=== PATIENT | female | born 1935 | race Caucasian/White ===

== ENCOUNTER → 2016-10-08 | Outpatient (CLI) | payer OTHER ==
[~2016-10-08] MED LIST: ACCUNEB0.63 MG/3 INH; ACETAMINOPHEN325 M1 PO; ALBUTEROL2.5 MG/31 INH; AMANTADINE 100100 MG PO; AREDS; AVELOX 400 MG400 MG PO; BACLOFEN20 MG PO; CALCIUM PO; CALCIUM STOOL240 MG PO; CARDIZEM CD180 MG PO; CITRACAL + BON1 EACH PO; COLACE100 MG PO; DEXEDRINE5 MG PO; DOCUSATE CALCIUM; FERRO-TIME325 MG PO; FISH OIL 1,0001 EAC8 PO; FLONASE16 GM NASAL; FOSAMAX 35 MG35 MG PO; GLYCOLAX POWDER17 G1 PO; HEALTHYLAX17 GM PO; I-CAPS AREDS S1 EACH PO; IMDUR 30 MG TAB30 M1 PO; LEVAQUIN 500 M500 M5 PO; LEVAQUIN 500 M500 M8 PO; LEVOTHYROXIN0.025 MG PO; LEVOTHYROXINE0.05 MG PO; METOCLOPRAMIDE 55 M1 PO; MUCINEX600 MG PO; MULTIVITAMINS PO; MULTIVITAMINS1 EAC7 PO; NORCO 5-325 TA1 EACH PO; OMEPRAZOLE 20 M20 M1 PO; OMEPRAZOLE 20 M20 MG PO; PAIN & FEVER325 MG PO; PREDNISONE 5 MG5 MG PO; RITALIN10 MG PO; STOOL SOFTENER240 MG PO; TOPROL XL50 MG PO; TRAMADOL 50 MG50 MG PO; ULTRAM 50MG TAB50 MG PO; VITAMINC500 PO
== END ==
LOC: RAD 08:35
DX: R06.00 Dyspnea, unspecified (principal)

== ENCOUNTER → 2017-02-01 | Outpatient (CLI) | payer OTHER | LOC: RAD 10:25 | DX: Z12.31 Encounter for screening mammogram for malignant neoplasm of breast (principal) ==

== ENCOUNTER → 2017-11-01 | Outpatient (CLI) | payer OTHER | LOC: RAD 08:33 | DX: J47.9 Bronchiectasis, uncomplicated (principal); R06.02 Shortness of breath ==

== ENCOUNTER 2017-11-23 23:23 | Inpatient (IN) | payer OTHER ==
[~2017-11-23] VITALS: Ht 162.6 cm; Wt 55.8 kg
--- NOTE | ~2017-11-23 | H ---
[facility] [place] [address] HISTORY AND PHYSICAL Name: LUPE LEZAMA Room #: 431-P ADM IN M.R.#: [id number] Admission: 11/24/17 Attend Phys: Andrew Baker MD Discharge: Date of : 36 Report #: [id number] THIS REPORT FOR: //name// CC: Hayden Baker DATE OF SERVICE: 11/24/2017 CHIEF COMPLAINT: Weakness. HISTORY OF PRESENT ILLNESS: The patient is an 82-year-old female who came in the Emergency Room with general weakness for several days. She was just feeling weak in the legs beyond her baseline. Apparently slumped to the floor when trying to transfer from her recliner to her wheelchair. She does have a history of multiple sclerosis and is generally wheelchair bound and is only able to transfer with assistance. She also has some nerve damage, injury to the right arm with significant weakness. She reports it was related to radiation treatment she took for breast cancer many years ago. She had fever in the ER and urinalysis was suggestive of infection. She has a ventral urostomy bag for urinary output. PAST MEDICAL HISTORY: MS, urostomy, history of pneumonia, chronic bronchitis and COPD, breast cancer with right lumpectomy and radiation treatment, right arm hemiplegia. 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 PAST SURGICAL HISTORY: As above. FAMILY HISTORY: Noncontributory. SOCIAL HISTORY: She is and lives with her . No chronic alcohol or tobacco use. ALLERGIES: MULTIPLE, SEE THE LIST. MEDICATIONS: Diltiazem, amantadine, Reglan, Flonase, Prilosec, Fosamax, Imdur, Toprol, Synthroid, DuoNeb, Colace, multivitamin, fish oil, vitamin C, Actonel, baclofen. REVIEW OF SYSTEMS: She complains of general weakness. She is awake and alert. She denies headache, chest pain, shortness of breath, nausea, vomiting, dysuria, syncope. OBJECTIVE: VITAL SIGNS: Temperature 36.8, pulse 80, respirations 17, blood pressure 129/65, O2 sat 97% on 2 liters. [facility] [address] [place] [address] HISTORY AND PHYSICAL Name: LUPE LEZAMA Room #: [address] [place] [address] IN .R.#: [id number] Admission: 11/24/17 Attend Phys: Andrew Baker MD Discharge: Date of : 36 Report #: [id number] GENERAL: She is awake and alert, in no distress. LUNGS: Clear. HEART: Regular. ABDOMEN: Soft, normoactive bowel sounds with urostomy. EXTREMITIES: No edema. NEUROLOGIC: There is near flaccid paralysis of the right arm. She has about 1/5 movement. She has rigid about 2/5 movement in the legs. LABORATORY DATA: Pertinent findings are urinalysis with blood, nitrite, leukocyte esterase, red cells, many bacteria, and culture is pending. Initial white count was 14. CPK was negative. Chemistry unremarkable. ASSESSMENT: 1. Acute urinary tract infection. 2. Possible multiple sclerosis exacerbation. 3. Hypertension. 4. Chronic urostomy in place. 5. Chronic obstructive pulmonary disease. PLAN: She will continue antibiotics with Levaquin pending the culture. I will ask Dr. Cochran to see her in regards to a possible MS exacerbation with consideration of steroids. Therapies have been initiated and I will have DVT prophylaxis added with Lovenox. <ELECTRONICALLY SIGNED> By: Andrew Baker MD 11/25/17 1043 1402 1417 Andrew Baker MD /nt
--- NOTE | ~2017-11-23 | D ---
[facility] [place] [address] DISCHARGE SUMMARY Name: LUPE LEZAMA Room #: 220-P [facility] IN M.R.#: [id number] Admission: 11/24/17 Attend Phys: Andrew Baker MD Discharge: 11/29/17 Date of : 36 Report #: [id number] THIS REPORT FOR: //name// CC: Hayden Baker FINAL DIAGNOSES: 1. Urinary tract infection. 2. Multiple sclerosis. HOSPITAL COURSE: The patient was admitted with fever and weakness and was diagnosed with UTI. Culture grew E. coli. Blood cultures were negative. Levaquin was continued due to her multiple allergies and sensitivity list despite evidence of intermediate susceptibility. She had no further symptoms during her stay. Dr. Cochran saw her for her MS, but did not feel an exacerbation and at this point, warranted steroids in the face of acute infection. Due to global weakness and immobility to begin with along with chronic right arm weakness, recommendation was prison to try to build some strength for transfers and order to return home. DISPOSITION: She will be transferred to [facility] under the care of inhouse physician. She will have a few more days of oral Levaquin. Other home medications to continue, PT and OT. Diet as tolerated. Follow up with Dr. Webb in 6 weeks. <ELECTRONICALLY SIGNED> By: Andrew Baker MD 11/30/17 0901 1249 1316 Andrew Baker MD /raúl
--- NOTE | ~2017-11-23 | HC ---
[facility] [place] [address] CONSULTATION Name: LUPE LEZAMA Room #: 431-P ADM IN M.R.#: [id number] Admission: 11/24/17 Attend Phys: Andrew Baker MD Discharge: Date of : 36 Report #: [id number] THIS REPORT FOR: //name// CC: Hayden Baker DATE OF SERVICE: 11/24/2017 HISTORY OF PRESENT ILLNESS: This is an 82-year-old female patient who was evaluated by me for multiple sclerosis. She follows up with Dr. Braun at [facility]. She indicates that her symptoms started about 20-30 years ago. She had bladder disturbances and problem with her legs. She initially had some MRIs, but they were not certain about the diagnosis. They did a spinal tap, but subsequently they thought she had a brain tumor. 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 She said initially she was diagnosed with relapsing and remitting MS, but subsequently with secondary progressive MS. She got weak about 2 months ago. She was given an oral steroid and she became better. She had an MRI done of the brain and spine about 2 months ago and that indicated that the patient had no active lesions. I do not have any of those records. REVIEW OF SYSTEMS: Positive for bladder disturbances. She is febrile here. She is also hyponatremic. Urine demonstrate UTI. White count is elevated. It looks like she is presently having an active infection. Her weakness in the lower extremity has become worse and that is one of the reason she came. She has a history of chronic bronchitis, history of pneumonia, urostomy and she had a radiation treatment also because of the breast cancer. She also has a history of kidney stone. There was a relevant 14-point review of system. PAST MEDICAL HISTORY: Positive for MS. FAMILY HISTORY: Negative for any neurodegenerative disorder. SOCIAL HISTORY: She lives with her who helps a lot in day-to-day activities. She does not drink any alcohol or smoke. PHYSICAL EXAMINATION: Indicate she is alert. She is responsive. She can follow simple commands. She believes her memory is at her baseline. Cranial nerve examination 2-12 was mostly noncontributory, but she is weak in all 4 extremities. She is able to move them, but she is still weak there. She believes position sense are there. There is no meningeal sign in this patient and her mentation has not deteriorated. She does not appear to be short of breath and there is no rhonchi. Blood pressure is 149/64, respiration is 16, pulse is 90, temperature is 98.8. [facility] [address] [place] [address] CONSULTATION Name: LUPE LEZAMA Room #: 431-P ADM IN M.R.#: [id number] Admission: 11/24/17 Attend Phys: Andrew Baker MD Discharge: Date of : 36 Report #: [id number] LABORATORY DATA: As described above. I do not have any imaging study in this patient. IMPRESSION: 1. Urinary tract infection. 2. Exacerbation of her symptoms most likely secondary to urinary tract infection. Infection can lead to relapse of multiple sclerosis also. RECOMMENDATIONS: I had a long talk with this patient and discussed her options with her. I discussed with her that it would not be desirable to start her on steroids when she is having active urinary tract infection. This is because it can make the urinary tract infection worse because of decreased immunity secondary to steroids and secondly it is not possible to tell if her exacerbation of the symptoms is because of infection or another relapse of MS. I told her that I will try to get her MRI from 2 months ago. If she continued to be symptomatic, I will suggest repeating the MRI to see if there are any active lesions before giving her steroids. Otherwise, I will suggest presently treating her urinary tract infection and hyponatremia and maybe get a rehab consult since she came from home and let her recuperate there and see if she gets better. More than 50 minutes of time was spent taking care of this patient today and majority of that time was spent counseling this patient on above matters as well as coordinating her care. By: 57 32 Henry Cochran MD /raúl
--- NOTE | ~2017-11-23 | EKG ---
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1935 Requested By: Devan Flores Order Number: [id number] MD: Aldo River Measurements Intervals [place] Rate: 94 P: 75 MO: 161 QRS: 34 QRSD: 92 T: 57 QT: 332 QTc: 416 Interpretive Statements Sinus rhythm Normal tracing Compared to ECG 05/24/2013 12:05:40 Sinus tachycardia no longer present Atrial premature complex(es) no longer present Electronically Signed On 11-24-2017 7:37:44 CDT by Aldo River [email or web address] <ELECTRONICALLY SIGNED> By: Aldo River MD, [facility] 11/24/17 0737 2348 47 Aldo River MD, [facility] /EPI
[2017-11-23 23:49] VITALS: BP 142/79
[2017-11-23 23:50] LABS: MCH 30.4 pg (26.0-34.0); MCHC 33.5 g/dL (28.0-37.0); PLATELET COUNT 174 thou/uL (150-400); RBC 3.95 mil/uL (4.20-5.00); RDW 13.4 % (10.5-14.5); WBC 14.4 thou/uL (4.0-11.0)
[2017-11-23 23:57] LABS: URINE BILIRUBIN NEGATIVE (Negative); URINE BLOOD 1+ (Negative); URINE COLOR YELLOW; URINE GLUCOSE-RANDOM* NEGATIVE (Negative); URINE KETONES NEGATIVE (Negative); URINE PROTEIN (DIPSTICK) 1+ (Negative); URINE UROBILINOGEN 0.2 E.U./dl (0.2-1.0)
[2017-11-23 23:58] LABS: URINE LEUKOCYTES-REFLEX 3+ (Negative); URINE NITRITE-REFLEX POSITIVE (Negative)
[2017-11-23 23:59] LABS: URINE CLARITY CLOUDY
[2017-11-24] LABS: ANION GAP 10 mmol/L (7-16); BUN 26 mg/dL (7-18); CALCIUM 9.9 mg/dL (8.5-10.1); CHLORIDE 93 mmol/L (98-107); CO2 28 mmol/L (21-32); CREATININE 1.2 mg/dL (0.6-1.0); GLUCOSE 143 mg/dL (74-106); POTASSIUM 3.9 mmol/L (3.5-5.1); SODIUM 131 mmol/L (136-145)
[2017-11-24] MEDS ORDERED: ALENDRONATE SOD35 MG PO (00:03)
[2017-11-24] MEDS ORDERED: ALBUTEROL2.5 MG/31 (00:04)
[2017-11-24 00:08] LABS: ALBUMIN 3.7 g/dL (3.4-5.0); MAGNESIUM 1.7 mg/dL (1.8-2.4); SGOT 27 U/L (15-37); SGPT 26 U/L (30-65); TOTAL BILIRUBIN 0.5 mg/dL (<0.1-1.0); TOTAL PROTEIN 8.6 g/dL (6.4-8.2); TROPONIN-I <0.06 ng/mL (<0.06)
[2017-11-24 00:11] LABS: BACTERIA-REFLEX >30 Many /HPF (None Seen); CASTS None Seen /LPF (None Seen); CRYSTALS None Seen /LPF (None Seen); SQUAMOUS 0-3 Few /LPF (0-3); URINE RBC 3-10 Few /HPF (0-2); URINE WBC-REFLEX >25 Many /HPF (0-5)
[2017-11-24 00:56] LABS: ABSOLUTE NEUTROPHILS 11.8 thou/uL (1.4-8.2)
[2017-11-24 01:24] VITALS: BP 142/79
[2017-11-24 01:33] VITALS: BP 142/79
[2017-11-24 02:00] VITALS: BP 162/73
[2017-11-24 07:15] VITALS: BP 129/65
[2017-11-24 16:30] VITALS: BP 128/58; BP 157/67
[2017-11-24 19:46] VITALS: BP 149/64
[2017-11-25 04:25] VITALS: BP 144/65
[2017-11-25 06:18] LABS: HEMATOCRIT 31.5 % (37.0-47.0); HEMOGLOBIN 10.4 gm/dL (12.0-15.0); MCH 30.5 pg (26.0-34.0); MCHC 33.1 g/dL (28.0-37.0); MCV 92.2 fL (80.0-100.0); RBC 3.42 mil/uL (4.20-5.00); RDW 13.4 % (10.5-14.5); WBC 11.1 thou/uL (4.0-11.0)
[2017-11-25 06:36] LABS: CALCIUM 8.5 mg/dL (8.5-10.1); CREATININE 0.8 mg/dL (0.6-1.0); POTASSIUM 3.3 mmol/L (3.5-5.1)
[2017-11-25 08:10] VITALS: BP 156/84
[2017-11-25 15:33] VITALS: BP 144/67
[2017-11-25 20:56] VITALS: BP 164/68
[2017-11-26 04:37] VITALS: BP 138/68
[2017-11-26 05:22] VITALS: BP 142/79
[2017-11-26 06:19] LABS: HEMATOCRIT 29.9 % (37.0-47.0); HEMOGLOBIN 10.2 gm/dL (12.0-15.0); MCH 31.1 pg (26.0-34.0); MCV 91.3 fL (80.0-100.0); RBC 3.27 mil/uL (4.20-5.00); RDW 13.6 % (10.5-14.5)
[2017-11-26 07:33] VITALS: BP 139/71
[2017-11-26 08:02] LABS: CALCIUM 8.9 mg/dL (8.5-10.1); CREATININE 0.8 mg/dL (0.6-1.0); POTASSIUM 4.4 mmol/L (3.5-5.1)
[2017-11-26] MEDS ORDERED: BACLOFEN20 MG PO ×2 (10:18→10:19)
[2017-11-26] MEDS ORDERED: LIORESAL 10 MG10 MG PO (10:18)
[2017-11-26] MEDS ORDERED: CIPRO250 M1 PO (10:20)
[2017-11-26 19:30] VITALS: BP 142/67
[2017-11-27 04:20] VITALS: BP 127/61
[2017-11-27 07:25] VITALS: BP 147/79
[2017-11-27 12:17] VITALS: BP 125/75
[2017-11-27 19:48] VITALS: BP 125/71
[2017-11-28 07:40] VITALS: BP 131/73
[2017-11-28 19:45] VITALS: BP 143/76
[2017-11-29 08:09] VITALS: BP 140/78
[2017-11-29 08:14] VITALS: BP 129/71
[2017-11-29] MEDS ORDERED: LEVAQUIN 500 M500 M2 PO (12:35)
== END 2017-11-29 17:00 | DRG 689 ==
LOC: ER 23:23 → 4E 11-24 00:45 → EROBS 11-24 00:45 → 4E 11-24 01:36 → SICU 11-27 11:20
PROVIDERS: Emergency Medicine; Internal Medicine Geriatric Medicine
DX: N39.0 Urinary tract infection, site not specified (principal); N17.0 Acute kidney failure with tubular necrosis; G35 Multiple sclerosis; J44.9 Chronic obstructive pulmonary disease, unspecified; K21.9 Gastro-esophageal reflux disease without esophagitis; N18.9 Chronic kidney disease, unspecified; W18.39XA Other fall on same level, initial encounter; B96.20 Unspecified Escherichia coli [E. coli] as the cause of diseases classified elsewhere; R26.9 Unspecified abnormalities of gait and mobility; E87.6 Hypokalemia; G72.9 Myopathy, unspecified; I12.9 Hypertensive chronic kidney disease with stage 1 through stage 4 chronic kidney disease, or unspecified chronic kidney disease; M25.511 Pain in right shoulder; E03.9 Hypothyroidism, unspecified; Y93.89 Activity, other specified; Y92.89 Other specified places as the place of occurrence of the external cause; Y99.8 Other external cause status; Z92.3 Personal history of irradiation; Z87.442 Personal history of urinary calculi; Z85.3 Personal history of malignant neoplasm of breast; Z98.42 Cataract extraction status, left eye; Z98.41 Cataract extraction status, right eye; Z90.710 Acquired absence of both cervix and uterus; Z79.51 Long term (current) use of inhaled steroids; Z79.899 Other long term (current) drug therapy; Z88.0 Allergy status to penicillin; Z88.2 Allergy status to sulfonamides; Z88.8 Allergy status to other drugs, medicaments and biological substances; Z88.6 Allergy status to analgesic agent; Z88.1 Allergy status to other antibiotic agents; Z91.041 Radiographic dye allergy status
CPT/HCPCS: 10783; 15002

== ENCOUNTER → 2017-12-20 | Outpatient (CLI) | payer OTHER ==
[~2017-12-20] MED LIST changes: +ALBUTEROL2.5 MG/31; +ALENDRONATE SOD35 MG PO; +CIPRO250 M1 PO; +LEVAQUIN 500 M500 M2 PO; +LIORESAL 10 MG10 MG PO
== END ==
LOC: RAD 09:41
DX: M47.816 Spondylosis without myelopathy or radiculopathy, lumbar region (principal); M47.898 Other spondylosis, sacral and sacrococcygeal region; M12.88 Other specific arthropathies, not elsewhere classified, other specified site; M41.84 Other forms of scoliosis, thoracic region; M51.34 Other intervertebral disc degeneration, thoracic region; M48.061 Spinal stenosis, lumbar region without neurogenic claudication; M41.86 Other forms of scoliosis, lumbar region; M25.511 Pain in right shoulder

== ENCOUNTER 2018-01-18 14:56 | Inpatient (IN) | payer OTHER ==
[~2018-01-18] VITALS: Ht 162.6 cm; Wt 56.4 kg
--- NOTE | ~2018-01-18 | D ---
[facility] [place] [address] DISCHARGE SUMMARY Name: LUPE LEZAMA Room #: 455-P [facility] IN M.R.#: [id number] Admission: 01/18/18 Attend Phys: Kenia uDeñas Discharge: 01/21/18 Date of : 36 Report #: [id number] THIS REPORT FOR: //name// CC: Hayden Webb FINAL DIAGNOSES: 1. Chronic obstructive pulmonary disease exacerbation. 2. Multiple sclerosis. HOSPITAL COURSE: The patient was admitted with shortness of breath, cough, congestion. X-ray showed no infiltrate and she was treated for COPD exacerbation with IV antibiotics, nebulized treatments and IV steroids. She has a baseline use of oxygen 3 liters nasal cannula at home and has a chronic Red catheter related to her MS. She had no medical complications during her stay. She improved with conservative treatment. She worked with physical therapy and was walking over 100 feet. On the day of discharge, she was stable with stable vital signs. Lungs were generally clear with a coarse cough. Heart was regular. Abdomen soft, normoactive bowel sounds and extremities showed no edema. She had good oxygen saturations on her baseline oxygen requirement. DISPOSITION: She will be discharged to home with diet and activity as tolerated. Resume all home medications plus Levaquin for 5 more days, prednisone taper over 2 weeks, nebulized treatments q.i.d. Red catheter remains in place. Follow up with Dr. Webb in 2 weeks. <ELECTRONICALLY SIGNED> By: Andrew Baker MD 01/25/18 1514 1110 1143 Andrew Baker MD /nt
--- NOTE | ~2018-01-18 | H ---
[facility] [address] [place] [address] HISTORY AND PHYSICAL Name: LUPE LEZAMA Room #: 455-P ADM IN M.R.#: [id number] Admission: 01/18/18 Attend Phys: Kenia Dueñas Discharge: Date of : 36 Report #: [id number] THIS REPORT FOR: //name// CC: Hayden Webb DATE OF SERVICE: 01/18/2018 CHIEF COMPLAINT: Cough and shortness of breath. HISTORY OF PRESENT ILLNESS: The patient is an 82-year-old female who was admitted from the office today with shortness of breath and cough and congestion. She has had several days of progressively congested cough and she has been more short of breath, especially at night. She had awoken many times through the night with congested, wheezing type cough. She does have a history of COPD and wears oxygen at 2 liters nasal cannula continuous at home. She has had a concentrator overnight, she had to increase her flow to 3-4 liters at times. She was started on Levaquin yesterday without any improvement, was admitted today for inpatient treatment. PAST MEDICAL HISTORY: Multiple sclerosis, chronic fatigue, history of recurrent urinary tract infections, remote breast cancer treated with radiation and chemotherapy in 1992, diverticulosis, GERD, history of kidney stones, history of pyelonephritis, history of ureteral obstruction, history of acute renal failure, history of Mycobacterium kansasii infection, history of bronchiectasis, coronary artery disease, chronic kidney disease stage 3, and hypothyroidism. PAST SURGICAL HISTORY: Noncontributory. FAMILY HISTORY: Noncontributory. SOCIAL HISTORY: She is and lives with her at home. No chronic tobacco or alcohol use. ALLERGIES: CONTRAST DYE, BUTORPHANOL, NITROFURANTOIN, CIPRO, CEPHALEXIN, PENICILLIN, THEOPHYLLINE, ASPIRIN, TETRACYCLINE, ERYTHROMYCIN, CLINDAMYCIN, SULFA, NALIDIXIC ACID. MEDICATIONS: MiraLax, DuoNeb, Flonase, tramadol, amantadine 100 mg twice a day, baclofen 40 mg in morning and 20 mg noon and 20 mg dinner and 40 mg at bedtime, diltiazem 180 mg, metoprolol 50 mg twice a day, Imdur 30 mg, Colace, Reglan 5 mg a.c. and at bedtime, Levoxyl 50 mcg, aspirin 81 mg, Breo Ellipta inhaler daily, Fosamax, fish oil, multivitamin, ICAPS, Citracal, gabapentin 100 mg t.i.d., Mucinex, omeprazole 20 mg. REVIEW OF SYSTEMS: She just complains of shortness of breath, cough and wheezing. Otherwise, no headache, chest pain, abdominal pain, nausea, vomiting, [facility] [address] [place] [address] HISTORY AND PHYSICAL Name: LUPE LEZAMA Room #: 455-P ADM IN M.R.#: [id number] Admission: 01/18/18 Attend Phys: Kenia Dueñas Discharge: Date of : 36 Report #: [id number] diarrhea, constipation, or dysuria. OBJECTIVE: VITAL SIGNS: From the office included blood pressure 118/72, temperature 98.2, pulse 78, respirations 18, O2 sat 94% on 2 liters nasal cannula. GENERAL: She was awake and alert, sitting up in her power chair, in no distress. HEAD AND NECK: Unremarkable. LUNGS: Have expiratory wheezes and a moist cough in all lung major. HEART: Regular. ABDOMEN: Soft, normoactive bowel sounds. EXTREMITIES: No edema. NEUROLOGIC: Motor strength 3/5 throughout. LABORATORY DATA: Chest x-ray from 01/17/2018 reveals chronic lung changes, but no new infiltrate. ASSESSMENT: 1. Chronic obstructive pulmonary disease exacerbation. 2. Multiple sclerosis. 3. Chronic kidney disease, stage 3. 4. Coronary artery disease by history. PLAN: She is admitted for IV antibiotics, IV steroids, nebulized treatments and pulmonary care. She has failed outpatient conservative treatment with oral antibiotics. We will ask Dr. Kolb to see her in consultation, usual medicines to continue, and Lovenox for DVT prophylaxis. <ELECTRONICALLY SIGNED> By: Andrew Baker MD 01/19/18917 1611 1712 Andrew Baker MD /nt
--- NOTE | ~2018-01-18 | HC ---
[facility] [place] [address] CONSULTATION Name: LUPE LEZAMA Room #: 455-P ADM IN M.R.#: [id number] Admission: 01/18/18 Attend Phys: Kenia Dueñas Discharge: Date of : 36 Report #: [id number] THIS REPORT FOR: //name// CC: Hayden Webb TYPE OF REPORT: Pulmonary consultation. REFERRING PHYSICIANS: Zackery Webb M.D. and Andrew Baker M.D. REASON FOR REFERRAL: Dyspnea. HISTORY OF PRESENT ILLNESS: The patient is an 82-year-old white female who has been admitted with progressive dyspnea. A pulmonary consultation was requested. The patient has been previously seen by the Pulmonary Department. She has a history of Mycobacterium avium complex infection but the patient along with COPD. She was in her usual state of health until for the past few days prior to presentation. She has noticed increasing dyspnea. With worsening symptoms, she was admitted. Otherwise, denies any recent febrile illness, chest pain, productive cough or hemoptysis. Of note, the patient has never smoked. She has had trouble with bronchospasm. She is felt to have COPD. She does respond to corticosteroids. She is on 2 liters of O2 chronically at home. PAST MEDICAL HISTORY: COPD, questionable history of asthma, multiple scleroses, history of breast cancer status post chemo and radiation therapy in 1992, gastroesophageal reflux disease, nephrolithiasis, diverticulosis, history of Mycobacterium kansasii infection, bronchiectasis, coronary artery disease, chronic kidney disease and hypothyroidism. PAST SURGICAL HISTORY: Noncontributory. ALLERGIES: To CONTRAST DYE, NITROFURANTOIN, CIPROFLOXACIN, CEPHALOSPORINS, PENICILLIN, THEOPHYLLINE, ASPIRIN, TETRACYCLINE, ERYTHROMYCIN, CLINDAMYCIN, SULFA, NALIDIXIC ACID and BUTORPHANOL. HOME MEDICATIONS: Reviewed in the MAR. FAMILY HISTORY: Noncontributory. SOCIAL HISTORY: She is and lives at home with her . She denies [facility] [address] [place] [address] CONSULTATION Name: LUPE LEZAMA Room #: [address] [place] [address] [place] [facility].#: [id number] Admission: 01/18/18 Attend Phys: Kenia Dueñas Discharge: Date of : 36 Report #: [id number] any tobacco. She has never smoked. Denies any alcohol use. REVIEW OF SYSTEMS: As mentioned above, otherwise 10-point system review negative. PHYSICAL EXAMINATION: GENERAL: She is awake and alert, in mild distress. VITAL SIGNS: Temperature is 98 degrees Fahrenheit, pulse 110, respiratory rate is 20, blood pressure is 170/99 mmHg and saturation 92%. HEENT: Normocephalic and atraumatic. NECK: Supple. No lymphadenopathy or thyromegaly. CHEST: Breath sounds are fair with mild bilateral crackles. CARDIOVASCULAR: Normal S1 and S2. No murmurs or gallop. There is no JVD. There is no carotid bruit. Pulses are 2+/4+ bilaterally. ABDOMEN: Soft and nontender. No organomegaly or masses felt. GENITOURINARY: Deferred. RECTAL: Deferred. EXTREMITIES: There is no edema, cyanosis or clubbing. RADIOLOGICAL DATA: Chest x-ray shows chronic bilateral interstitial changes, compared to prior study, there has been no significant change. This appears to be chronic changes. LABORATORY DATA: Electrolytes are normal with a creatinine of 1.3. Liver enzymes unremarkable. WBC 9400, hemoglobin 9.9 and platelets normal. Arterial blood gas revealed pH 7.39, pCO2 of 42 and pO2 of 82 on 1-1/2 liters of O2. Albumin is 2.9. IMPRESSION: 1. Chronic obstructive pulmonary disease exacerbation, possible asthma. 2. Multiple scleroses. 3. Coronary artery disease. 4. Chronic kidney disease. 5. History of Mycobacterium kansasii infection along with history of bronchiectasis, questionable history of Mycobacterium avium complex infection. 6. History of breast cancer status post radiation and chemotherapy. 7. Gastroesophageal reflux disease. 8. Diverticulosis. 9. Hypothyroidism. RECOMMENDATIONS: Agree with current treatment plans, bronchodilators, corticosteroids and broad-spectrum antibiotics. DVT and GI prophylaxis has been addressed. [address] [address] CONSULTATION Name: LUPE LEZAMA Room #: 455-P ADM IN M.R.#: [id number] Admission: 01/18/18 Attend Phys: Kenia Dueñas Discharge: Date of : 36 Report #: [id number] Thank you for this consultation. <ELECTRONICALLY SIGNED> By: Godfrey Kolb MD 01/20/18 1819 1916 2353 Godfrey Kolb MD /nt
[2018-01-18 15:45] VITALS: BP 129/75
[2018-01-18 16:43] LABS: BE(vivo) 0.3 mmol/L (-2 to +3); HCO3 25.2 mmol/L (22.0-26.0); PO2 82.3 mmHg (80.0-100.0); pH 7.396 (7.360-7.450); sO2 96.1 % (92.0-98.0)
[2018-01-18 16:55] LABS: ABSOLUTE NEUTROPHILS 7.3 thou/uL (1.4-8.2); BASOPHILS 0.5 % (0.0-2.0); EOSINOPHILS 0.7 % (0.0-3.0); HEMATOCRIT 29.6 % (37.0-47.0); HEMOGLOBIN 9.9 gm/dL (12.0-15.0); LYMPHOCYTES 12.1 % (24.0-44.0); MCH 29.1 pg (26.0-34.0); MCHC 33.3 g/dL (28.0-37.0); MCV 87.2 fL (80.0-100.0); MONOCYTES 9.1 % (1.0-8.0); PLATELET COUNT 267 thou/uL (150-400); POLYS 77.6 % (36.0-66.0); RBC 3.39 mil/uL (4.20-5.00); RDW 15.6 % (10.5-14.5); WBC 9.4 thou/uL (4.0-11.0)
[2018-01-18 17:09] LABS: ALBUMIN 2.9 g/dL (3.4-5.0); CALCIUM 9.8 mg/dL (8.5-10.1); CREATININE 1.2 mg/dL (0.6-1.0); POTASSIUM 4.3 mmol/L (3.5-5.1); TOTAL BILIRUBIN 0.2 mg/dL (<0.1-1.0)
[2018-01-18 19:56] VITALS: BP 167/94
[2018-01-19 03:33] VITALS: BP 158/82
[2018-01-19 07:20] VITALS: BP 177/99
[2018-01-19 15:25] VITALS: BP 194/104
[2018-01-19 15:30] VITALS: BP 150/95
[2018-01-19 19:56] VITALS: BP 169/96
[2018-01-20 00:04] VITALS: BP 155/88
[2018-01-20 04:47] VITALS: BP 128/73
[2018-01-20 08:28] VITALS: BP 147/81
[2018-01-20 11:50] VITALS: BP 132/74
[2018-01-20 16:14] VITALS: BP 128/75
[2018-01-20 19:55] VITALS: BP 141/69
[2018-01-21 05:17] VITALS: BP 167/84
[2018-01-21 07:33] VITALS: BP 148/82
[2018-01-21] MEDS ORDERED: MUCINEX600 MG PO (10:33)
[2018-01-21] MEDS ORDERED: ALBUTEROL2.5 MG/31 INH (10:33)
[2018-01-21] MEDS ORDERED: LEVAQUIN 500 M500 M2 PO (10:35)
[2018-01-21] MEDS ORDERED: PREDNISONE 20 M20 MG PO (10:36)
[2018-01-21 11:02] VITALS: BP 148/82
[2018-01-21 12:44] VITALS: BP 148/82
== END 2018-01-21 12:30 | disposition home or self-care (01) | DRG 191 ==
LOC: 4W 14:56 → ENTRNSPT 01-21 12:05 → EDTRNSPTSTS 01-21 12:08 → 4W 01-21 12:30
PROVIDERS: Internal Medicine
DX: J44.1 Chronic obstructive pulmonary disease with (acute) exacerbation (principal); E44.1 Mild protein-calorie malnutrition; N18.3 Chronic kidney disease, stage 3 (moderate); K21.9 Gastro-esophageal reflux disease without esophagitis; K57.90 Diverticulosis of intestine, part unspecified, without perforation or abscess without bleeding; G35 Multiple sclerosis; I25.10 Atherosclerotic heart disease of native coronary artery without angina pectoris; E03.9 Hypothyroidism, unspecified; Z85.3 Personal history of malignant neoplasm of breast; Z92.21 Personal history of antineoplastic chemotherapy; Z92.3 Personal history of irradiation; Z87.442 Personal history of urinary calculi; Z79.899 Other long term (current) drug therapy; Z88.0 Allergy status to penicillin; Z88.2 Allergy status to sulfonamides; Z88.8 Allergy status to other drugs, medicaments and biological substances; Z88.6 Allergy status to analgesic agent; Z88.1 Allergy status to other antibiotic agents; Z91.041 Radiographic dye allergy status
CPT/HCPCS: 10047

== ENCOUNTER 2018-11-14 07:52 | Inpatient (IN) | payer OTHER ==
[~2018-11-14] VITALS: Ht 162.6 cm; Wt 57.7 kg
[~2018-11-14 07:52] MED LIST changes: +LOPRESSOR50 PO; +PREDNISONE 20 M20 MG PO; -TOPROL XL50 MG PO
[2018-11-14 07:53] VITALS: BP 170/88
[2018-11-14] MEDS ORDERED: ALBUTEROL2.5 MG/31 INH ×2 (08:00)
[2018-11-14] MEDS ORDERED: AIRBORNE GUMMI1 EACH PO (08:00)
[2018-11-14] MEDS ORDERED: ASPIR 8181 MG PO (08:01)
[2018-11-14] MEDS ORDERED: ALENDRONATE SOD35 MG PO (08:01)
[2018-11-14] MEDS ORDERED: CITRACAL + BON1 EACH PO (08:02)
[2018-11-14 08:14] LABS: HEMATOCRIT 32.1 % (37.0-47.0); HEMOGLOBIN 10.3 gm/dL (12.0-15.0); MCH 28.8 pg (26.0-34.0); MCHC 32.3 g/dL (28.0-37.0); MCV 89.2 fL (80.0-100.0); PLATELET COUNT 354 thou/uL (150-400); RDW 15.1 % (10.5-14.5); WBC 15.2 thou/uL (4.0-11.0)
[2018-11-14] MEDS ORDERED: FISH OIL 1,001000 M2 PO (08:15)
[2018-11-14] MEDS ORDERED: GABAPENTIN 100100 MG PO (08:15)
[2018-11-14] MEDS ORDERED: METHYLPHENIDATE10 M7 PO (08:16)
[2018-11-14] MEDS ORDERED: MIRALAX17 GM PO (08:17)
[2018-11-14] MEDS ORDERED: MUCINEX600 MG PO (08:18)
[2018-11-14] MEDS ORDERED: ROBITUSSIN100 MG/53 PO (08:19)
[2018-11-14] MEDS ORDERED: PRESERVISION T1 EACH PO (08:19)
[2018-11-14] MEDS ORDERED: TYLENOL EXTRA500 MG PO (08:20)
[2018-11-14] MEDS ORDERED: VITAMINC500 PO (08:21)
[2018-11-14 08:31] LABS: ABSOLUTE NEUTROPHILS 12.6 thou/uL (1.4-8.2)
[2018-11-14 08:35] LABS: ALBUMIN 2.9 g/dL (3.4-5.0); ANION GAP 6 mmol/L (7-16); BUN 36 mg/dL (7-18); CHLORIDE 98 mmol/L (98-107); CO2 30 mmol/L (21-32); CREATININE 1.7 mg/dL (0.6-1.0); DIRECT BILIRUBIN 0.1 mg/dL (<0.1-0.3); GLUCOSE 128 mg/dL (74-106); MAGNESIUM 2.1 mg/dL (1.8-2.4); POTASSIUM 4.7 mmol/L (3.5-5.1); SGOT 26 U/L (15-37); SGPT 25 U/L (30-65); SODIUM 134 mmol/L (136-145); TOTAL BILIRUBIN 0.5 mg/dL (<0.1-1.0); TOTAL PROTEIN 8.5 g/dL (6.4-8.2); TROPONIN-I <0.06 ng/mL (<0.06)
[2018-11-14 08:38] LABS: CALCIUM 12.2 mg/dL (8.5-10.1)
[2018-11-14 08:58] LABS: URINE BILIRUBIN NEGATIVE (Negative); URINE BLOOD 3+ (Negative); URINE CLARITY CLOUDY; URINE COLOR YELLOW; URINE GLUCOSE-RANDOM* NEGATIVE (Negative); URINE KETONES NEGATIVE (Negative); URINE NITRITE-REFLEX NEGATIVE (Negative); URINE PROTEIN (DIPSTICK) NEGATIVE (Negative)
[2018-11-14 08:59] LABS: URINE LEUKOCYTES-REFLEX 3+ (Negative); URINE UROBILINOGEN 0.2 E.U./dl (0.2-1.0)
[2018-11-14 09:01] LABS: URINE WBC-REFLEX >25 Many /HPF (0-5)
[2018-11-14 09:02] LABS: AMORPHOUS URATES Moderate /LPF (None Seen); CASTS None Seen /LPF (None Seen); SQUAMOUS None Seen /LPF (0-3); URINE RBC 3-10 Few /HPF (0-2)
[2018-11-14 12:11] VITALS: BP 172/88
[2018-11-14 12:15] VITALS: BP 188/87
[2018-11-14 15:00] VITALS: BP 172/88
[2018-11-14 17:34] VITALS: BP 181/112
--- NOTE | 2018-11-14 18:08 | NUR ---
PATIENT ARRIVED TO [facility] ED FOR UTI, WEAKNESS, AND LEUKOCYTOSIS. ADMISSION ASSESMENT AND HISTORY COMPLETED. PT REMAIN HTN WITH HEART RATE IN 130-145 AND RESPIRATION >20. SINUS TACH ON EKG AND PORTABLE MONITOR. DR SU NOTIIFIED AND PATIENT WAS TRANSFERED TO [facility]/SUG TELE 3WEST.
--- NOTE | 2018-11-14 18:42 | NUR ---
ASSUMED CARE OF PT AT ON ARRIVAL FROM [facility] AT APPROX 1630. TACHYCARDIC/HYPERTENSIVE. ASYMPTOMATIC. ORDERS RECEIVED FOR BOLUS AND 5MG LOPRESSOR. SHOWING IMPROVEMENT. EKG SINUS TACH. WILL CONT TO MONITOR.
[2018-11-14 19:18] VITALS: BP 168/101
[2018-11-15 03:42] VITALS: BP 167/97
--- NOTE | 2018-11-15 06:11 | NUR ---
ASSUMED CARE FOR PT AFTER A RAPID RESPONSE DUE TO EXTREME TACHY. THROUGHOUT SHIFT PT HOVERED AROUND 110. UROSTOMY PRODUCED COPIOUS AMOUNTS OF URINE, APRROX 2600 ML. PT A/0 X3, WHILE SHE SHOWS SOME CONFUSION AT TIMES AND THINKS SHE IS AT [facility]. FOLLOWING POC WITH LAST BAG OF IVF ORDERED. HOURLY ROUNDING AND PT HAS ABILITY TO USE CALL LIGHT APPROPRIATELY.
[2018-11-15 07:44] VITALS: BP 169/98
--- NOTE | 2018-11-15 07:47 | EKG ---
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 : 1935 Requested By: Ladi Bernard Order Number: [id number] MD: Aldo River Measurements Intervals [place] Rate: 107 P: 77 AR: 173 QRS: 45 QRSD: 74 T: 59 QT: 301 QTc: 402 Interpretive Statements Sinus tachycardia Atrial premature complexes Probable left atrial enlargement Electronically Signed On 11-14-2018 8:19:31 CDT by [facility] Compared to ECG 11/23/2017 23:48:47 Atrial premature complex(es) now present Electronically Signed On 11-15-2018 7:47:38 CDT by Aldo River [email or web address] ��������������������������������������������� <ELECTRONICALLY SIGNED> ���������������������������������������� By: Aldo River MD, [facility] ��������������������������������������������� 11/15/18 0747 0 0 Aldo River MD, [facility] /EPI
--- NOTE | 2018-11-15 07:50 | EKG ---
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[place] : 1935 Requested By: Hayden Webb Order Number: [id number] MD: Aldo River Measurements Intervals [place] Rate: 133 P: 77 DC: 144 QRS: 33 QRSD: 88 T: 31 QT: 286 QTc: 426 Interpretive Statements Sinus tachycardia Atrial premature complexes Compared to ECG 11/23/2017 23:48:47 Atrial premature complex(es) now present Electronically Signed On 11-15-2018 7:50:17 CDT by Aldo River [email or web address] ��������������������������������������������� <ELECTRONICALLY SIGNED> ���������������������������������������� By: Aldo River MD, [facility] ��������������������������������������������� 11/15/18 0750 1804 180 Aldo River MD, [facility] /EPI
[2018-11-15 11:18] LABS: HEMATOCRIT 30.3 % (37.0-47.0); HEMOGLOBIN 9.8 gm/dL (12.0-15.0); MCH 28.9 pg (26.0-34.0); MCHC 32.4 g/dL (28.0-37.0); MCV 89.1 fL (80.0-100.0); RBC 3.4 mil/uL (4.20-5.00); RDW 14.7 % (10.5-14.5); WBC 14.7 thou/uL (4.0-11.0)
[2018-11-15 11:37] LABS: ALBUMIN 2.4 g/dL (3.4-5.0); CREATININE 0.9 mg/dL (0.6-1.0); POTASSIUM 3.1 mmol/L (3.5-5.1); TOTAL BILIRUBIN 0.2 mg/dL (<0.1-1.0); TOTAL PROTEIN 7.8 g/dL (6.4-8.2)
[2018-11-15 11:40] LABS: CALCIUM 9.5 mg/dL (8.5-10.1)
--- NOTE | 2018-11-15 14:58 | NUR ---
INITIAL ASSESSMENT: SW reviewed chart. Pt was admitted from [facility] due to UTI/Debility. Pt with hx of MS. SW met with pt at bedside. INtroduced role of SW. Pt is alert/orientated. Pt states that she lives in her AL apt with her . Pt has a walker and w/c. Pt has home O2 through [employer]. Pt has used [facility] in the past for HH and has been to [facility]. Pt is hoping to be able to return home when medically stable. Pt's PCP is Dr. Zackery Webb. SW is following to assist as needed with discharge planning.
[2018-11-15 15:36] VITALS: BP 147/95
--- NOTE | 2018-11-15 18:09 | NUR ---
ASSUMED CARE @ 0700 11/15/18, PT ALERT AND ORIENTED X 2-3, PT HAS MOMENTS OF CONFUSION, BUT ABLE TO FOLLOW COMMANDS TO HER BEST ABILITY. PT IS STILL VERY WEAK. PT IS ST ON THE MONITOR. PT ON 2L OF 02, PT SOUNDS MORE WHEEZY ON THE RUL. PT HAS LOW APETITE. DRAINAGE BAG CONNECTED TO UROSTOMY. PT ABLE TO WORK WITH HER TODAY. FAMILY HERE TO VISIT FOR SUPPORT. PT HAD AN UNEVENTFUL NIGHT, PLAN OF CARE- CONT TO MONITOR.
[2018-11-15 19:45] VITALS: BP 160/92
[2018-11-16 03:10] VITALS: BP 177/102
[2018-11-16 07:48] VITALS: BP 170/107
--- NOTE | 2018-11-16 14:46 | 2DMMODE ---
[facility] [address] [place] [address] 2 D/M-MODE ECHOCARDIOGRAM Name: LUPE LEZAMA Room #: 354-P ADM IN .R.#: [id number] ������������� Admission: 11/14/18 ������������� Attend Phys: Hayden Paredes Discharge: ��� ������������� ��� Date of : 37 Date of Service: 11/16/18 1446 �� Report #: [id number] �������� ��������������������������������������������[id number] THIS REPORT FOR: //name// APPROVED REPORT Study performed: 11/16/2018 13:21:26 EXAM: Comprehensive 2D, Doppler, and color-flow Echocardiogram Patient Location: In-Patient Room #: 354 Status: routine BSA: 1.57 HR: 94 bpm BP: 130/81 mmHg Rhythm: NSR Other Information Study Quality: Poor Indications Atrial Fibrillation PSVT 2D Dimensions IVSd: 8.54 (7-11mm) LVOT Diam: 19.47 (18-24mm) LVDd: 38.83 mm PWd: 10.36 (7-11mm) Ascending Ao: 31.52 (22-36mm) LVDs: 23.35 (25-40mm) Aortic Root: 35.67 mm Volumes Left Atrial Volume (Systole) Single Plane 4CH: 17.34 mL Single Plane 2CH: 16.74 mL LA ESV Index: 12.00 mL/m2 Aortic Valve AoV Peak Timo.: 0.91 m/s AO Peak Gr.: 3.34 mmHg LVOT Max P.58 mmHg LVOT Max V: 0.80 m/s KATELYN Vmax: 2.61 cm2 Mitral Valve E/A Ratio: 0.7 MV Decel. Time: 242.35 ms MV E Max Timo.: 0.64 m/s [facility] [address] [address] 2 D/M-MODE ECHOCARDIOGRAM Name: LUPE LEZAMA Room #: 354-[facility] IN ..#: [id number] ������������� Admission: 11/14/18 ������������� Attend Phys: Hayden Paredes Discharge: ��� ������������� ��� Date of : 37 Date of Service: 11/16/18 1446 �� Report #: [id number] �������� ��������������������������������������������[id number] MV A Timo.: 0.93 m/s MV PHT: 70.28 ms IVRT: 96.89 ms Pulmonary Valve PV Peak Timo.: 0.84 m/s PV Peak Gr.: 2.82 mmHg Tricuspid Valve TR Peak Timo.: 2.34 m/s TR Peak Gr.: 21.98 mmHg PA Pressure: 27.00 mmHg Left Ventricle The left ventricle is normal size. Moderate basal septal hypertrophy is present. The left ventricular systolic function is normal. LVEF is 55-60%. Mild diastolic dysfunction is present (impaired relaxation pattern). Right Ventricle The right ventricle is normal size. The right ventricular systolic function is normal. Atria The left atrium size is normal. The right atrium size is normal. Aortic Valve The aortic valve is normal in structure. Mild aortic regurgitation. There is no aortic valvular stenosis. Mitral Valve The mitral valve is normal in structure. Mild mitral regurgitation. No evidence of mitral valve stenosis. Tricuspid Valve The tricuspid valve is normal in structure. Mild tricuspid regurgitation. Estimated PAP is 27mmHg. Pulmonic Valve Pulmonic valve is not well visualized. Mild pulmonic regurgitation. Great Vessels The aortic root is normal in size. The ascending aorta is normal in size. IVC is normal in size and collapses >50% with inspiration. [facility] [place] [address] 2 D/M-MODE ECHOCARDIOGRAM Name: LUPE LEZAMA Room #: 354-P ADM IN M.R.#: [id number] ������������� Admission: 11/14/18 ������������� Attend Phys: Hayden Paredes Discharge: ��� ������������� ��� Date of : 37 Date of Service: 11/16/18 1446 �� Report #: [id number] �������� ��������������������������������������������[id number] Pericardium There is no pericardial effusion. <Conclusion> The left ventricle is normal size. LVEF is 55-60%. The aortic valve is normal in structure. Mild aortic regurgitation. The mitral valve is normal in structure. Mild mitral regurgitation. The tricuspid valve is normal in structure. Mild tricuspid regurgitation. Estimated PAP is 27mmHg. Pulmonic valve is not well visualized. Mild pulmonic regurgitation. There is no pericardial effusion. ��������������������������������������������� <ELECTRONICALLY SIGNED> ���������������������������������������� By: Celestine Nichols MD ��������������������������������������������� 11/16/18 1446 1446 1446 Celestine Nichols MD /INF
[2018-11-16 15:29] VITALS: BP 135/86
--- NOTE | 2018-11-16 16:14 | NUR ---
SW reviewed chart. Cardiology consulted. Pt's HR elevated. Pt may need post-acute placement at time of discharge. Awaiting therapy evaluations at this time. JEAN CLAUDE is following to assist as needed with discharge planning.
--- NOTE | 2018-11-16 16:44 | NUR ---
ASSUMED PATIENT CARE AT 0700. A/O X4. CONFUSED SOMETIMES. PATIENT STARTED SVT IN EARLY AM. METOPROLO IV 5MG GIVEN BUT PATIENT WENT IN TO AFIB. CARDIOLOG CONSULTED. PATIENT ON CARDIZEM GTT CURRENT RUNNING AT 5ML/HR. HR 104. GENERLAIED WEAKNESS. POOR APPETITE. SLOWLY TOWARD TO POC GOALS.
[2018-11-16 19:36] VITALS: BP 155/102
[2018-11-16 23:13] VITALS: BP 140/98
[2018-11-16 23:55] VITALS: BP 148/89
--- NOTE | 2018-11-17 02:33 | NUR ---
SLEEPING MOST OF SHIFT. TURNS SELF IN BED. REMAINS FORGETFUL AND THOUGHT WE WERE UNDER A TORNADO WATCH BUT NO FURTHER HALLUCINATIONS. TELEMETRY SHOW CONVERRSION BACK TO SR/ST WITH SMALL BURSTS OF AFIB IN 130-150, REMAINS ON CARDIZEM GTT AT THIS TIME. MAINTAIN SAFE ENVIRONMENT. WORKING ON GOALS AND PLAN OF CARE FOR NOC. PROGRESSING SLOWLY TOWARDS DISCHARGE GOALS. CONTINUE TO ASSES CLOSELY.
[2018-11-17 03:58] VITALS: BP 143/82
--- NOTE | 2018-11-17 06:38 | NUR ---
REMAINS ANXIOUS. SLEEPING IN SHORT TIMES. STATES HAS BEEN HANGING UPSIDE DOWN FOR HOURS AND SHE NEEDS TO GO SHOPPING TO GET SHAMPOO. REASSURED AND ASSISTED TO REPOSITION,
[2018-11-17 07:29] VITALS: BP 153/89
--- NOTE | 2018-11-17 07:38 | EKG ---
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 : 1935 Requested By: Maral Narvaez Order Number: [id number] MD: Aldo River Measurements Intervals [place] Rate: 137 P: MA: QRS: 36 QRSD: 80 T: 50 QT: 295 QTc: 446 Interpretive Statements Atrial fibrillation Compared to ECG 11/14/2018 18:04:47 Sinus tachycardia no longer present Electronically Signed On 11-17-2018 7:38:26 CDT by Aldo River [email or web address] ��������������������������������������������� <ELECTRONICALLY SIGNED> ���������������������������������������� By: Aldo River MD, [facility] ��������������������������������������������� 11/17/18 0738 1026 1026 Aldo River MD, FAC /EPI
[2018-11-17 09:39] LABS: HEMATOCRIT 32.3 % (37.0-47.0); HEMOGLOBIN 10.5 gm/dL (12.0-15.0); MCH 28.7 pg (26.0-34.0); MCHC 32.6 g/dL (28.0-37.0); MCV 88.1 fL (80.0-100.0); RBC 3.66 mil/uL (4.20-5.00); RDW 14.7 % (10.5-14.5); WBC 13.4 thou/uL (4.0-11.0)
[2018-11-17 09:50] LABS: CALCIUM 9.5 mg/dL (8.5-10.1); POTASSIUM 3.6 mmol/L (3.5-5.1)
--- NOTE | 2018-11-17 10:40 | NUR ---
DISCHARGE PLANNING. POST ACUTE RECOMMENDED AT DISCHARGE. PATIENT REFERRAL FAXED TO [facility] FOR POST ACUTE CARE PLACEMENT NEEDS. CALL PLACED TO [facility], SPOKE WITH RYAN IN ADMISSIONS. RYAN TO REVIEW AND NOTIFY CM. FOLLOWING TO ASSIST WITH DISCHARGE NEEDS.
--- NOTE | 2018-11-17 15:33 | NUR ---
JEAN CLAUDE reviewed chart and spoke with nursing and attending physician. Pt is progressing towards goals for discharge. Discharge to SNF is anticipated for tomorrow. JEAN CLAUDE discussed with [place] liaison, who states that pt's spouse at [facility] and family request that pt not go to [facility]. Referrals sent to [facility] and [facility] per family request. Both SNFs are able to accept pt. JEAN CLAUDE left voice message for pt's son to request preference of facility. Awaiting call back at this time. JEAN CLAUDE is following to assist as needed with discharge planning.
[2018-11-17 16:20] VITALS: BP 141/85
--- NOTE | 2018-11-17 17:51 | NUR ---
PT IS PROGRESSING TOWARDS DISCHAGE GOALS...PLANS FOR D/C WEDNESDAY TO [facility]...
--- NOTE | 2018-11-17 17:52 | NUR ---
PT IS A HIGH FALL RISK..SHE IS IMPULSIVE AND HALLUCINATING..DAUGHTER AT BEDSIDE TO HELP REORIENT...FREQ ROUNDS...
[2018-11-17 19:25] VITALS: BP 158/101
[2018-11-17 20:00] VITALS: BP 158/98
[2018-11-17 23:51] VITALS: BP 145/90
--- NOTE | 2018-11-18 03:18 | NUR ---
ASSESSMENT: PT REMAIN ALERT TIMES ONE. PT IS CONFUSED TO TIME, PLACE AND SITUATION. PT THINKS THAT SHE IS IN HER HOUSE, TALKS ABOUT GETTING TO THE NEXT ROOM, THINKS THAT SOMEONE IS LAYING NEXT TO HER IN BED AND SO ON. NOT SO EASY TO REORIENT TO REALITY. PLEASANT, COORPERATIVE AND CAN BE ANXIOUS AT TIMES. NO BM PER BEDPAN ONLY FLATUS. UROSOTOMY INTACT WITH CLOUDY URINE OUTPUT. ST PER MONOTOR IN 100-110'S. BLOOD PRESSURE WAS ELEVATED, METOPROLOL GIVEN WITH GOOD RESULTS. VANCO TROUGH ORDERED FOR 11/19 AT 1130. NO SEIZURE ACTIVITY NOTED. DR. CARRANZA CALLED AND WILL SEE PT TOMORROW, POSSIBLE EEG WILL BE ORDERED. SLOW PROGRESS TOWARDS DC GOALS, WILL CONTINUE TO MONITOR.
[2018-11-18 03:24] VITALS: BP 155/101
[2018-11-18 05:17] LABS: HEMATOCRIT 32.1 % (37.0-47.0); HEMOGLOBIN 10.4 gm/dL (12.0-15.0); MCH 28.8 pg (26.0-34.0); MCHC 32.5 g/dL (28.0-37.0); MCV 88.6 fL (80.0-100.0); RBC 3.62 mil/uL (4.20-5.00); RDW 14.9 % (10.5-14.5); WBC 13.3 thou/uL (4.0-11.0)
[2018-11-18 05:31] LABS: CALCIUM 8.8 mg/dL (8.5-10.1); CREATININE 0.9 mg/dL (0.6-1.0); POTASSIUM 3.4 mmol/L (3.5-5.1)
[2018-11-18 07:38] VITALS: BP 164/109
[2018-11-18 07:40] VITALS: BP 146/74
[2018-11-18 10:20] LABS: TSH 0.745 uIU/mL (0.358-3.740)
--- NOTE | 2018-11-18 14:47 | NUR ---
JEAN CLAUDE reviewed chart and spoke with nursing and attending physician. Neuro consulted yesterday due to new tremors. JEAN CLAUDE received voice message from pt's son, Cathy, stating [facility]. JEAN CLAUDE discussed with [facility]. [facility] has insurance authorization and can accept pt when medically stable. Authorization is good for 7 days. JEAN CLAUDE met with pt and dtr at bedside to provide update. Pt and dtr are aware and agreeable with discharge plan. JEAN CLAUDE updated [facility] liaison. JEAN CLAUDE is following to assist as needed with discharge planning.
[2018-11-18 15:00] VITALS: BP 150/97
--- NOTE | 2018-11-18 15:58 | NUR ---
PT REMAINS A HIGH FALL RISK..SHE IS HALLUCINATING AND IMPULSIVE..DAUGHTER AT BEDSIDE..WILL FREQ MONITOR...
[2018-11-18 19:29] VITALS: BP 171/93
--- NOTE | 2018-11-19 06:46 | NUR ---
PATIENT ALERT AND ORIENTED X3 WITH PERIODS OF FORGETFULNESS AND CONFUSION. COMPULSIVE AT TIME. NEEDS REDIRECTION SEVERAL TIMES THROUGH THE NIGHT. DENIES PAIN. SLEPT OFF AND ON DURING NIGHT.
[2018-11-19 07:48] VITALS: BP 143/87
--- NOTE | 2018-11-19 12:00 | HC ---
[facility] [place] [address] CONSULTATION Name: LUPE LEZAMA Room #: 354-P ADM IN M.R.#: [id number] Admission: 11/14/18 ������������������ Attend Phys: Kenia Dueñas Discharge: ������������������ Date of : 36 Report #: [id number] THIS REPORT FOR: //name// CC: Hayden Webb HISTORY OF PRESENT ILLNESS: The patient is an 83-year-old female whom we are asked to see in consultation because of tremors and altered mental status. Apparently, the patient's daughter was concerned that the patient was having seizures. However, I was able to see the tremors, these mainly occurred when the patient's arms were outstretched. In fact, when her arms were outstretched, her eyes began to roll back in her head and when I spoke to her and asked her to open her eyes, she immediately responded to me. The tremors were better, although they did continue. Apparently, the patient has had 2 different types of pulmonary infections, treated with antibiotics. The patient also has a long-standing history of multiple sclerosis and was diagnosed with MS by Dr. Christopher Braun when the patient was in her 40s. According to the patient's daughter, her mother has seemed confused and short of air. The patient has also probably fallen several times over a 2-day period. Typically, the patient uses her walker in her apartment, but also wears continuous oxygen secondary to chronic obstructive pulmonary disease. The patient lives at [facility]. The patient's daughter lives approximately 2 hours away. 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 PAST SURGICAL HISTORY: Urostomy, right lumpectomy, bowel resection, bilateral cataract surgery, hysterectomy, hernia repair, ileal conduit surgery, multiple surgeries for cystoceles and bladder prolapse. MEDICATIONS: In hospital, albuterol p.r.n., aspirin 81 mg daily, BuSpar 5 mg t.i.d., Multaq 400 mg b.i.d., Lovenox 30 mg at bedtime, Mucinex ER 600 mg b.i.d., levothyroxine 50 mcg daily, metoprolol 50 mg b.i.d., polyethylene glycol 17 grams daily, vancomycin 750 mg daily. ALLERGIES: CONTRAST DYE, PENICILLIN, THEOPHYLLINE, ASPIRIN, BETHANECHOL, KEFLEX, ZYLOCEF, STADOL, DEMEROL, NYSTATIN, CLINDAMYCIN, ERYTHROMYCIN, NALIDIXIC ACID, NITROFURANTOIN, TETRACYCLINE AND TRIMETHOPRIM. PHYSICAL EXAMINATION: VITAL SIGNS: Temperature is 36.8, pulse rate 98, respiratory rate 16, blood pressure 146/74, bedside pulse oximetry 91% on 2 liters. NEUROLOGIC: Cranial nerves 2-12 are grossly intact with the exception of smooth pursuit. The patient has difficulty with smooth [place] [address] CONSULTATION Name: LUPE LEZAMA Room #: 354-P [facility] IN M.R.#: [id number] Admission: 11/14/18 ������������������ Attend Phys: Kenia Dueñas Discharge: ������������������ Date of : 36 Report #: [id number] right or left. Motor exam demonstrates generalized weakness, particularly in the lower extremities. The patient is able to raise her arms from the bed and has tremors in both arms. Reflexes are trace. Plantar responses are mute bilaterally. Coordination demonstrates no evidence of dysmetria. Gait was not tested. LABORATORY DATA: White blood cell count 13.3; hemoglobin 10.4; hematocrit 32.1; platelet count 419,000. Urinalysis: 3+ blood, 3+ leukocyte esterase, moderate bacteria. Chemistry: Sodium 135, potassium 3.4, chloride 96, carbon dioxide 27, BUN 23, creatinine 0.9, GFR 60, glucose 132. Liver functions unremarkable. IMPRESSION: I explained to the patient and her daughter that most likely this increased confusion and hallucinations are secondary to the bladder infection. However, I questioned whether there may be an underlying dementia, although it may be mild. I have ordered thyroid and B12 levels. I do not recommend any antipsychotic medication for the patient. These hallucinations should continue to improve as the urinary tract infection improves. I will check on the patient tomorrow. I suspect that the patient may be a good candidate for therapy once the urinary tract infection begins to improve. ��������������������������������������������� <ELECTRONICALLY SIGNED> ���������������������������������������� By: Nora Garrett DO ��������������������������������������������� 11/19/18 1200 0948 1025 Nora Garrett DO /nt
[2018-11-19 16:21] VITALS: BP 104/64
--- NOTE | 2018-11-19 16:52 | NUR ---
ASSUMED PATIENT CARE AT 0700. A/O X2. CONFUSED SOMETIMES. ASSISTED PATIENT UP TO CHAIR AND AMBULATED IN ROOM, PATIENT ENCOURAGE EATTING AND DRAINK. SLOWLY TOWARD POC GOALS.
[2018-11-19 19:05] VITALS: BP 122/70
--- NOTE | 2018-11-20 03:03 | NUR ---
PATIENT IS PROGRESSING IN HER CARE PLAN. VITAL SIGNS STABLE WITH PATIENT HAVING NO COMPLAINTS OF PAIN OR NAUSEA. PATIENT HAS BEEN MOSTLY ORIENTED THROUGHOUT SHIFT BUT HAS SHOWN SOME EPISODES OF CONFUSION. BREATHING STABLE ON LOW LEVEL OF OXYGEN EVIDENCED BY SPOT OXYGENATION CHECKS. PATIENT HAS BEEN UP TO CHAIR AND BEDSIDE COMMODE MULTIPLE TIMES WITH ASSISTANCE INCIDENT FREE. SHE IS CONSIDERED A HIGH FALL RISK. CONTINUE PLAN OF CARE.
[2018-11-20 04:15] VITALS: BP 122/74
[2018-11-20 05:01] LABS: CALCIUM 7.8 mg/dL (8.5-10.1); CREATININE 0.9 mg/dL (0.6-1.0); MAGNESIUM 1.7 mg/dL (1.8-2.4); POTASSIUM 3.5 mmol/L (3.5-5.1)
[2018-11-20 07:51] VITALS: BP 135/79
[2018-11-20 15:45] VITALS: BP 116/73
--- NOTE | 2018-11-20 17:35 | NUR ---
ASSUMED PATIENT CARE AT 0700. A/O X4. GETTING MORE ALERT TODAY. UP TO CHAIR WITH ASSISTED. ENCOUAGING EAT AND DRAINK. PROGRESSING TOWARDS POC GOALS/
[2018-11-20 19:48] VITALS: BP 123/67
[2018-11-21 04:00] VITALS: BP 125/74
--- NOTE | 2018-11-21 04:48 | NUR ---
PATIENT IS PROGRESSING IN HER CARE PLAN. VITAL SIGNS STABLE WITH PATIENT HAVING NO COMPLAINTS OF PAIN OR NAUSEA. PATIENT HAS BEEN MOSTLY ORIENTED THROUGHOUT SHIFT AND HAS BEEN ABLE TO CALL EFFECTIVELY FOR NEEDS. BREATHING STABLE EVIDENCED BY SP[OT OXYGENATION CHECKS. PATIENT HAS BEEN UP MULTIPLE TIMES WITH ASSISTANCE INCIDENT FREE. CONTINUE PLAN OF CARE.
[2018-11-21 07:46] VITALS: BP 135/79
--- NOTE | 2018-11-21 13:36 | NUR ---
jorge called [facility] to let them know patient is to dc tomorrow.
--- NOTE | 2018-11-21 13:43 | NUR ---
SW reviewed chart and spoke with nursing and attending physician. Pt is progressing towards goals for discharge. Discharge to [facility] is anticipated for tomorrow. merchandise planner to send updates and notify the facility. SW attempted to meet with pt at bedside. Pt was sleeping soundly during time of visit. JEAN CLAUDE spoke with pt's son, Cathy, via phone to provide update and discuss discharge plan. Pt's son thought pt would be discharged on Wednesday. JEAN CLAUDE explained that if pt is medically stable for discharge tomorrow, attending physician will complete discharge orders/summary. Pt's son verbalized understanding. SW is following to assist as needed with discharge planning.
[2018-11-21 15:01] VITALS: BP 126/73
--- NOTE | 2018-11-21 18:11 | NUR ---
PT ALERT AND ORIENTED TIMES THREE WITH PERIODS OF CONFUSION. VSS, 98%RA, SR ON TELE. PT DENIES PAIN/SOA AT THIS TIME. PT UP TO CHAIR WITH ASSIST OF ONE. PT TOLERATES MEDS AND MEALS. PT FAMILY AT BEDSIDE FOR MOST OF THE SHIFT. WILL CONTINUE TO MONITOR.
[2018-11-21 19:28] VITALS: BP 145/77
--- NOTE | 2018-11-22 03:16 | NUR ---
PATIENT IS PROGRESSING IN HER CARE PLAN. VITAL SIGNS STABLE WITH PATIENT HAVING NO COMPLAINTS OF NAUSEA. PATIENT DID COMPLAIN OF HEADACHE WHICH WAS TREATED APPROPRIATELY WITH MEDICATION AND NON PHARMACOLOGICAL INTERVENTION. PATIENT HAS REMAINED MOSTLY ORIENTED DURING SHIFT AND HAS CALLED APPROPRIATELY FOR REQUESTS. BREATHING STABLE EVIDENCED BY SPOT OXYGENATION CHECKS. PATIENT HAS BEEN UP MULTIPLE TIMES TO BEDSIDE COMMODE WITH ASSISTANCE INCIDENT FREE. SHE IS VERY UNSTEADY AND CONSIDERED A HIGH FALL RISK. UROSTOMY IS PRODUCING A GOOD AMOUNT OF URINARY OUTPUT. POSSIBLE DISCHARGE SOON. CONTINUE PLAN OF CARE.
[2018-11-22 04:03] VITALS: BP 149/90
[2018-11-22 05:41] LABS: HEMATOCRIT 28.7 % (37.0-47.0); HEMOGLOBIN 9.5 gm/dL (12.0-15.0); MCH 29.6 pg (26.0-34.0); MCHC 33.1 g/dL (28.0-37.0); MCV 89.5 fL (80.0-100.0); RBC 3.21 mil/uL (4.20-5.00); RDW 14.6 % (10.5-14.5); WBC 10.2 thou/uL (4.0-11.0)
[2018-11-22 06:01] LABS: CALCIUM 8.6 mg/dL (8.5-10.1); CREATININE 0.9 mg/dL (0.6-1.0); POTASSIUM 3.7 mmol/L (3.5-5.1)
[2018-11-22 08:04] VITALS: BP 138/77
--- NOTE | 2018-11-22 11:31 | NUR ---
Kettle Loader called [facility] and spoke with Gm in admissions, dp let Don know patient to be dc tomorrow from hospital. Dp also left message with patient's son Cathy on vm that his mom is to dc tomorrow and we will contact him tomorrow with transportation time.
--- NOTE | 2018-11-22 13:37 | NUR ---
SW reviewed chart and spoke with nursing. Pt is not ready for discharge today. Pt to continue IV abx due to MRSA in her urine. Pt will finish IV vanco tomorrow. Anticipate discharge to [facility] tomorrow. town planner to notify SNF and family. JEAN CLAUDE is following to assist as needed with discharge planning.
[2018-11-22 15:28] VITALS: BP 107/68
--- NOTE | 2018-11-22 18:38 | NUR ---
PT ALERT AND ORIENTED TIMES FOUR WITH PERIODS OF CONFUSION. VSS, 95%2L, SR ON TELE, PT C/O PAIN PRN PAIN MEDICATIONS WITH SOME RELEIF. PT TOLERATES MEDS AND MEALS. PT UP TO CHAIR FOR SOME PART OF THE SHIFT. FAMILY AT BEDSIDE THIS AFTERNOON. PT PROGRESSING TOWRADS POC GOALS.
[2018-11-22 19:09] VITALS: BP 117/63
[2018-11-23 03:37] VITALS: BP 142/84
--- NOTE | 2018-11-23 04:26 | NUR ---
PATIENT IS PROGRESSING IN HER CARE PLAN. VITAL SIGNS STABLE WITH PATIENT HAVING NO COMPLAINTS OF NAUSEA. PATIENT HAS STATED GENERALIZED PAIN AND HEADACHE WHICH NURSE HAS BEEN ABLE TO TREAT THROUGH NON PHARMACOLOGICAL INTERVENTION. MOSTLY ORIENTED, PATIENT HAS BEEN ABLE TO CALL APPROPRIATELY FOR NEEDS AND PARTICIPATE IN CARE. BREATHING STABLE EVIDENCED BY SPOT OXYGENATION CHECKS. PATIENT HAS BEEN UP MULTIPLE TIMES TO BEDSIDE COMMODE WITH ASSISTANCE INCIDENT FREE. SHE IS A HIGH FALL RISK. GOOD OUTPUT THROUGH UROSTOMY WITH PATIENT ABLE TO HAVE MULTIPLE BOWEL MOVEMENTS. PATIENT IS EXPECTED TO DISCHARGE SOON. CONTINUE PLAN OF CARE.
[2018-11-23 07:31] VITALS: BP 142/88
--- NOTE | 2018-11-23 11:27 | NUR ---
ASSUMED CARE OF PT AT 0700. PT HAS BEEN A&Ox4 WITH MILD FORGETFULNESS. PT HAS BEEN UP TO CHAIR. STABLE TRANSFER WITH 1 ASSIST, GAIT BELT, AND WALKER. UROSTOMY IN PLACE WITH GOOD OUTPUT. NO COMPLAINTS OF PAIN, GALLEGOS, OR N/V. GOOD APPETITE. DAUGHTER AT BEDSIDE. PT IS PROGRESSING TOWARD POC GOALS. ANTICIPATED DC TODAY. WILL CONTINUE TO MONITOR AND ASSESS.
[2018-11-23] MEDS ORDERED: BACLOFEN20 MG PO (12:11)
[2018-11-23] MEDS ORDERED: MULTAQ 400 MG400 MG PO (12:12)
[2018-11-23] MEDS ORDERED: LOPRESSOR25 PO (12:12)
[2018-11-23] MEDS ORDERED: PULMICORT0.5 MG/22 INH (12:13)
[2018-11-23] MEDS ORDERED: MUCINEX600 MG PO (12:13)
[2018-11-23] MEDS ORDERED: PREDNISONE 20 M20 MG PO (12:13)
[2018-11-23] MEDS ORDERED: LEVAQUIN 500 M500 M2 PO (12:18)
--- NOTE | 2018-11-23 14:00 | NUR ---
DISCHARGE NOTE: SW reviewed chart and spoke with nursing and attending physician. Pt is medically stable for discharge to [facility] today. SW notified [place] liaison. life care planner to coordinate and notify family. Chart copy ordered. No further SW needs identified at this time, but is available to assist should needs arise.
--- NOTE | 2018-11-23 14:17 | NUR ---
patient to dc today to [facility] 5[facility] [place] 2L oxygen. Unit notified, family notified. DC paperwork faxed to facility and 3w office secretary for chart copy.
--- NOTE | 2018-11-25 11:09 | D ---
[facility] [place] [address] DISCHARGE SUMMARY Name: LUPE LEZAMA Room #: 354-P [facility] IN M.R.#: [id number] Admission: 11/14/18 ������������������ Attend Phys: Kenia Dueñas Discharge: 11/23/18 ������������������ Date of : 37 Report #: [id number] THIS REPORT FOR: //name// CC: Hayden Webb FINAL DIAGNOSES: 1. Chronic obstructive pulmonary disease exacerbation. 2. New onset atrial fibrillation. 3. Hypertension. 4. Chronic kidney disease, stage 3. 5. Chronic multiple sclerosis. 6. 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 8. Metabolic encephalopathy. 9. Hypercalcemia, resolved. HOSPITAL COURSE: The patient was admitted from home with general weakness and falls. She had a lot of cough and congestion, was treated for COPD exacerbation as well. After about several hospital days, she became confused and was having visual hallucinations. Home medicines were then resumed. The urine culture eventually grew MRSA, did feel this is likely a colonization as she has had chronic urostomy for some time and has had antibiotic exposure in the past. However, Neurology assessed her and felt that the infection could be exacerbating her MS, contributing to the hallucinations. She did have a short course of oral Levaquin for COPD exacerbation. I felt this may have been contributing to hallucinations and that was discontinued. However, her mental status seemed to improve mostly when resumed her home medicines including lower dose of baclofen and amantadine, along with IV antibiotics for the urinary culture. In the last couple of hospital days, we adjusted antihypertensives and added pulmonary treatments. She did have an episode of rapid atrial fibrillation through the course of the hospital stay. I did not feel she was a candidate for oral anticoagulation due to fall risk. Cardiology team assessed her and placed her on Multaq with a slightly higher dose of metoprolol with discontinuation of Cardizem. This controlled her heart rate. She had no other interval complication. PHYSICAL EXAMINATION: GENERAL: On the day of discharge, she was awake and alert and had been for 4 days, eating breakfast and was clear of mind. VITAL SIGNS: Stable. LUNGS: Had some expiratory wheezing. HEART: Regular. ABDOMEN: Soft, normoactive bowel sounds with urostomy in the right lower quadrant. EXTREMITIES: Showed no edema. DISPOSITION: She is discharged to [facility]. We will follow [address] [address] DISCHARGE SUMMARY Name: LUPE LEZAMA Room #: 354-P [facility] IN [facility].#: [id number] Admission: 11/14/18 ������������������ Attend Phys: Kenia Dueñas Discharge: 11/23/18 ������������������ Date of : 36 Report #: [id number] her skilled stay there. DIET AND ACTIVITY: As tolerated. Physical and occupational therapy. BMP and CBC in 2 days. Follow up with Dr. Webb in 2 weeks. DISCHARGE MEDICATIONS: She will have prednisone for 3 days, Levaquin 250 mg a day for 5 days, with instructions of the staff to watch for side effects. Pulmicort b.i.d., albuterol nebs q.i.d. and amantadine 100 mg b.i.d., baclofen 5 mg t.i.d., Tylenol, Prilosec, multivitamin, Neurontin 100 mg twice a day, metoprolol 75 mg twice a day, Multaq 400 mg twice a day, aspirin 81 mg a day. She is instructed to discontinue her calcium supplement, Cardizem, Ritalin. ��������������������������������������������� <ELECTRONICALLY SIGNED> ���������������������������������������� By: Andrew Baker MD ��������������������������������������������� 11/25/18 1109 1239 1252 Andrew Baker MD /nt
== END 2018-11-23 17:32 | DRG 190 ==
LOC: ER 07:52 → EROBS 10:51 → 3W 10:51 → 4W 13:08 → 3W 16:35
PROVIDERS: Emergency Medicine; Internal Medicine; Internal Medicine Geriatric Medicine; Nurse Practitioner Gerontology; Psychiatry & Neurology Neurology; ADMIT Internal Medicine
DX: J44.1 Chronic obstructive pulmonary disease with (acute) exacerbation (principal); G92 Toxic encephalopathy; E44.0 Moderate protein-calorie malnutrition; N39.0 Urinary tract infection, site not specified; I47.1 Supraventricular tachycardia; R65.10 Systemic inflammatory response syndrome (SIRS) of non-infectious origin without acute organ dysfunction; G35 Multiple sclerosis; R29.6 Repeated falls; K21.9 Gastro-esophageal reflux disease without esophagitis; N18.3 Chronic kidney disease, stage 3 (moderate); I12.9 Hypertensive chronic kidney disease with stage 1 through stage 4 chronic kidney disease, or unspecified chronic kidney disease; E83.52 Hypercalcemia; I27.20 Pulmonary hypertension, unspecified; I48.0 Paroxysmal atrial fibrillation; E87.6 Hypokalemia; I25.10 Atherosclerotic heart disease of native coronary artery without angina pectoris; B95.62 Methicillin resistant Staphylococcus aureus infection as the cause of diseases classified elsewhere; E03.9 Hypothyroidism, unspecified; Z98.42 Cataract extraction status, left eye; Z87.442 Personal history of urinary calculi; Z85.3 Personal history of malignant neoplasm of breast; Z98.41 Cataract extraction status, right eye; Z68.21 Body mass index [BMI] 21.0-21.9, adult; Z87.01 Personal history of pneumonia (recurrent); Z90.710 Acquired absence of both cervix and uterus; Z99.81 Dependence on supplemental oxygen; Z79.51 Long term (current) use of inhaled steroids; Z79.82 Long term (current) use of aspirin; Z79.899 Other long term (current) drug therapy; Z88.0 Allergy status to penicillin; Z88.8 Allergy status to other drugs, medicaments and biological substances; Z88.6 Allergy status to analgesic agent; Z88.1 Allergy status to other antibiotic agents; Z91.041 Radiographic dye allergy status
CPT/HCPCS: 10080; 10879

== ENCOUNTER 2019-01-22 08:49 | Inpatient (IN) | payer OTHER ==
[~2019-01-22] VITALS: Ht 162.6 cm; Wt 50.1 kg
[2019-01-22] VITALS (7 sets, daily range): BP systolic 110–133; BP diastolic 50–71
[~2019-01-22 08:49] MED LIST changes: +AIRBORNE GUMMI1 EACH PO; +ASPIR 8181 MG PO; +FISH OIL 1,001000 M2 PO; +GABAPENTIN 100100 MG PO; +LOPRESSOR25 PO; +METHYLPHENIDATE10 M7 PO; +MIRALAX17 GM PO; +MULTAQ 400 MG400 MG PO; +PRESERVISION T1 EACH PO; +PULMICORT0.5 MG/22 INH; +ROBITUSSIN100 MG/53 PO; +TYLENOL EXTRA500 MG PO
[2019-01-22 09:17] LABS: ABSOLUTE NEUTROPHILS 12.3 thou/uL (1.4-8.2); BASOPHILS 0.1 % (0.0-2.0); EOSINOPHILS 1.1 % (0.0-3.0); HEMATOCRIT 31.3 % (37.0-47.0); HEMOGLOBIN 9.9 gm/dL (12.0-15.0); LYMPHOCYTES 3.9 % (24.0-44.0); MCHC 31.6 g/dL (28.0-37.0); MCV 82.5 fL (80.0-100.0); MONOCYTES 6.7 % (1.0-8.0); PLATELET COUNT 422 thou/uL (150-400); POLYS 88.2 % (36.0-66.0); RBC 3.79 mil/uL (4.20-5.00); RDW 16.5 % (10.5-14.5)
[2019-01-22 09:24] LABS: ANION GAP 11 mmol/L (7-16); BUN 31 mg/dL (7-18); CALCIUM 9.7 mg/dL (8.5-10.1); CHLORIDE 97 mmol/L (98-107); CO2 26 mmol/L (21-32); CREATININE 1.6 mg/dL (0.6-1.0); GLUCOSE 118 mg/dL (74-106); POTASSIUM 3.9 mmol/L (3.5-5.1); SODIUM 134 mmol/L (136-145)
[2019-01-22 09:34] LABS: ALBUMIN 2.9 g/dL (3.4-5.0); DIRECT BILIRUBIN < 0.1 mg/dL (<0.1-0.3); SGOT 24 U/L (15-37); SGPT 31 U/L (30-65); TOTAL BILIRUBIN 0.3 mg/dL (<0.1-1.0); TOTAL PROTEIN 7.8 g/dL (6.4-8.2); TROPONIN-I <0.06 ng/mL (<0.06)
[2019-01-22] MEDS ORDERED: PREDNISONE 5 MG5 M1 PO (09:46)
[2019-01-22] MEDS ORDERED: ONDANSETRON ODT4 MG PO (09:46)
[2019-01-22] MEDS ORDERED: DELSYM COU30 MG/5 M1 PO (09:47)
[2019-01-22] MEDS ORDERED: PRESERVISION A1 EACH PO (09:48)
[2019-01-22] MEDS ORDERED: MAALOX ADVANCE355 M1 PO (09:51)
[2019-01-22] MEDS ORDERED: PROBIOTIC1 EAC1 PO (09:52)
[2019-01-22] MEDS ORDERED: TYLENOL EXTRA500 MG PO (09:53)
[2019-01-22] MEDS ORDERED: AMANTADINE100 M1 PO (09:53)
[2019-01-22] MEDS ORDERED: ASPIR 8181 M1 PO (09:54)
[2019-01-22] MEDS ORDERED: BACLOFEN5 MG PO (09:54)
[2019-01-22 11:37] LABS: URINE CLARITY CLOUDY; URINE COLOR YELLOW
[2019-01-22 11:38] LABS: URINE BLOOD 3+ (Negative); URINE GLUCOSE-RANDOM* NEGATIVE (Negative); URINE KETONES NEGATIVE (Negative); URINE LEUKOCYTES-REFLEX 3+ (Negative); URINE NITRITE-REFLEX NEGATIVE (Negative); URINE PROTEIN (DIPSTICK) 2+ (Negative); URINE UROBILINOGEN 0.2 E.U./dl (0.2-1.0)
[2019-01-22 11:39] LABS: ICTOTEST (BILI CONFIRMATORY) Negative (Negative); URINE BILIRUBIN NEGATIVE (Negative)
[2019-01-22 11:40] LABS: AMORPHOUS URATES Moderate /LPF (None Seen); CASTS None Seen /LPF (None Seen); SQUAMOUS None Seen /LPF (0-3); URINE RBC 0-2 Rare /HPF (0-2); URINE WBC-REFLEX 6-15 Few /HPF (0-5)
--- NOTE | 2019-01-22 14:34 | EKG ---
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 : 1935 Requested By: Ladi Bernard Order Number: [id number] MD: Aldo River Measurements Intervals [place] Rate: 66 P: 77 ND: 159 QRS: 48 QRSD: 84 T: 60 QT: 406 QTc: 426 Interpretive Statements Sinus rhythm Normal tracing Compared to ECG 11/16/2018 10:26:31 Atrial fibrillation no longer present Electronically Signed On 01-22-2019 14:34:06 CDT by Aldo River [email or web address] <ELECTRONICALLY SIGNED> By: Aldo River MD, [facility] 01/22/19 [id number] Aldo River MD, [facility] /EPI
--- NOTE | 2019-01-22 18:34 | NUR ---
pt admitted from ER about 1400pm, pt is A&OX3, PT is continuing o2 2L/min/nc, pt has started IV ABT for UTI, PT's VS and o2sat are stable at this time, RN has received dr order to resume pt's home medications, pt denies pain and sob at this time.
[2019-01-23 03:34] VITALS: BP 117/98
--- NOTE | 2019-01-23 05:24 | NUR ---
ASSUMED CARE AT 1900. PT REPORTS FEELING LIKE SHE NEEDS TO COUGH UP MUCOUS BUT IS UNABLE TO GET ANYTHING UP; REFUSED HS COUGH SYRUP. SOB WITH EXERTION, ON BASELINE 2L O2; LUNG SOUNDS COARSE WITH CRACKLES IN BASES. DENIES NAUSEA OR PAIN; ASKED FOR A TYLENOL TO HELP RELAX AND SLEEP. UROSTOMY DRAINING LIGHT YELLOW URINE WITH LARGE AMOUNTS OF SEDIMENT, CONNECTED TO FULL SIZE DRAIN BAG. REQUIRES SET UP FOR ADL'S D/T NERVE DAMAGE TO RIGHT ARM; PLACED A SMALL ROLLED WASHCLOTH IN RIGHT HAND. NO OTHER CONCERNS, WILL CONTINUE TO MONITOR.
[2019-01-23 07:33] VITALS: BP 135/68
--- NOTE | 2019-01-23 08:26 | NUR ---
PATIENT WANTS ALBUTEROL TREATMENTS QID, IS NOW ONLY ON PULMICORT TREATMENTS BIDE
--- NOTE | 2019-01-23 10:55 | NUR ---
dp called [facility] to see if patient is there lt or skilled, dp spoke with Aleta and patient was in skilled.
[2019-01-23 11:06] VITALS: BP 118/65
[2019-01-23] MEDS ORDERED: ALBUTEROL2.5 MG/31 INH (12:21)
[2019-01-23] MEDS ORDERED: LOPRESSOR25 PO (12:21)
[2019-01-23] MEDS ORDERED: LEVAQUIN 500 M500 M2 PO (12:22)
[2019-01-23 15:07] VITALS: BP 118/65
[2019-01-23 15:19] VITALS: BP 118/65
--- NOTE | 2019-01-23 15:36 | NUR ---
INITIAL ASSESSMENT: JEAN CLAUDE reviewed chart and spoke with nursing . Pt was admitted from [facility] due to possible syncopal episode/UTI. JEAN CLAUDE met with pt at bedside. Introduced role of SW. Pt is alert/orientated. Pt reports that she and her moved into [facility] earlier this year. Her earlier this summer. Pt states her plan is to return to [facility] when stable. Pt states she is normally on 2L of O2. Pt has a walker. Pt states her family is aware of her hospitalization. sr. merchandise planner contacted [facility], who statesd that pt was there skilled. JEAN CLAUDE discussed with [facility] liaison, who states that pt returned to her [place] apt with on 12/19. Discharge orders completed for pt to return to [facility] today. JEAN CLAUDE met with pt and dtr at bedside to discuss discharge plan. Pt and dtr are agreeable with returning to her [place] apt with [facility]. Pt's dtr-in-law to provide transportation home. sr. merchandise planner to fax info and discharge orders/summary to [facility] and to [facility]. JEAN CLAUDE updated pt's nurse. No additional SW needs identified at this time, but is available to assist should needs arise. planning.
--- NOTE | 2019-01-23 15:55 | NUR ---
PT DISCHARGED BACK TO [facility] WITH O2 AND DAUGHTER TRANSPORTED...CALLED REPORT TO NURSE AND CALLED LEVAQUIN RX TO NURSE AT [facility] LEVAQUIN 500 MG QOD X 5 DOSES..START TOMORROW...ALSO DC IMDUR...FOLLOW UP BMP IN 3 DAYS
--- NOTE | 2019-02-03 10:14 | DSS ---
[facility] [address] [address] SHORT STAY SUMMARY Name: LUPE LEZAMA Room #: 445-P [facility] IN M.R.#: [id number] Admission: 01/22/19 Attend Phys: Kenia Dueñas Discharge: 01/23/19 Date of : 36 Report #: [id number] THIS REPORT FOR: //name// CC: Hayden Webb DATE OF SERVICE: 01/23/2019 CHIEF COMPLAINT: Weakness. HISTORY OF PRESENT ILLNESS: The patient is an 83-year-old female with multiple medical problems who was sent to the Emergency Room from her assisted living facility with a syncopal episode. The patient reports taking her medication early yesterday morning and then was taken up out of bed and placed into the dining room as her usual schedule. She remembers talking to a table maid when she said she felt dizzy and put her head down on the table. The next thing she remembers that she was back in her room and EMS was standing around preparing to bring her to the Emergency Room. Initial reports from EMS with that she was hypotensive with blood pressure in the 60s systolic. By the time she approached ER, she was back to her baseline. 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 She is on chronic steroids. She also has a history of urostomy, breast cancer with previous lumpectomy, radiation on the right, bowel resection due to perforation, atrial fibrillation. She is on Multaq, hypertension, MS. PAST SURGICAL HISTORY: As above. FAMILY HISTORY: Noncontributory. SOCIAL HISTORY: She lives at [facility]. No chronic alcohol or tobacco use. ALLERGIES: URECHOLINE, KEFLEX, PSEUDOEPHEDRINE, IODINE, PENICILLIN, THEOPHYLLINE, STADOL, DEMEROL, NYSTATIN, ASPIRIN, CLINDAMYCIN, ERYTHROMYCIN, NALIDIXIC ACID, NITROFURANTOIN, TETRACYCLINE, TRIMETHOPRIM, QUESTIONABLE ADVERSE REACTION TO LEVAQUIN WITH CONFUSION, BUT SHE IS TAKING IT IN THE PAST WITH NO COMPLAINTS. REVIEW OF SYSTEMS: She denies headache, chest pain, shortness of breath, abdominal pain, nausea, vomiting, diarrhea, constipation, dysuria, syncope. OBJECTIVE: VITAL SIGNS: Temperature 96.5, pulse 55, respirations 20, blood pressure 118/65, O2 sat 99% on 2 liters. GENERAL: She is awake and alert, in no distress. [address] [address] SHORT STAY SUMMARY Name: LUPE LEZAMA Room #: 445-P [facility] IN M.R.#: [id number] Admission: 01/22/19 Attend Phys: Kenia Dueñas Discharge: 01/23/19 Date of : 36 Report #: [id number] HEAD AND NECK: Unremarkable. LUNGS: Clear. HEART: Regular. ABDOMEN: Soft, normoactive bowel sounds with ileal conduit in the right lower quadrant. EXTREMITIES: No cyanosis, clubbing or edema. NEUROLOGIC: She is alert and oriented x 4, recognizes me, in no distress. LABORATORY DATA: Urinalysis had protein, blood, leukocytes, white cells, some bacteria. CT head was negative for acute process. Chest x-ray shows chronic lung changes. HOSPITAL COURSE: She was watched on telemetry overnight. She had no reports of any arrhythmias. She was back in her normal state this morning. There have been no further episodes. She was very eager to return to her assisted living apartment. Her daughter was agreeable. She did have slightly elevated creatinine at the time of admission. I felt this was more of a prerenal status as she has had normal renal function in the past. Empiric Levaquin was ordered and the urine culture is pending. DISPOSITION: She will return to her [facility] with [facility]. She will resume all her usual medicines with the exception of discontinuing Imdur she may have had a syncopal episode related to medication. Follow up lab data in 3 days with a BMP. Follow up with Dr. Webb as directed. <ELECTRONICALLY SIGNED> By: Andrew Baker MD 02/03/19 1014 1256 1333 Andrew Baker MD /nt
== END 2019-01-23 15:57 | disposition home or self-care (01) | DRG 74 ==
LOC: ER 08:49 → 4S 12:11 → EROBS 12:11 → 4S 13:37
PROVIDERS: Emergency Medicine; ADMIT Internal Medicine
DX: G90.8 Other disorders of autonomic nervous system (principal); N17.9 Acute kidney failure, unspecified; N39.0 Urinary tract infection, site not specified; G35 Multiple sclerosis; K21.9 Gastro-esophageal reflux disease without esophagitis; I10 Essential (primary) hypertension; T50.905A Adverse effect of unspecified drugs, medicaments and biological substances, initial encounter; E03.9 Hypothyroidism, unspecified; I48.91 Unspecified atrial fibrillation; Z87.440 Personal history of urinary (tract) infections; Z85.3 Personal history of malignant neoplasm of breast; Z92.3 Personal history of irradiation; Z92.21 Personal history of antineoplastic chemotherapy; Z98.42 Cataract extraction status, left eye; Z98.41 Cataract extraction status, right eye; Z90.710 Acquired absence of both cervix and uterus; Z87.442 Personal history of urinary calculi; Z79.899 Other long term (current) drug therapy; Z79.82 Long term (current) use of aspirin; Z79.52 Long term (current) use of systemic steroids; Z88.8 Allergy status to other drugs, medicaments and biological substances; Z88.0 Allergy status to penicillin; Z88.6 Allergy status to analgesic agent; Z88.1 Allergy status to other antibiotic agents; Z91.041 Radiographic dye allergy status; Y92.89 Other specified places as the place of occurrence of the external cause; J42 Unspecified chronic bronchitis
CPT/HCPCS: 10100

== ENCOUNTER 2019-07-04 18:17 | Inpatient (IN) | payer OTHER ==
[~2019-07-04] VITALS: Ht 162.6 cm; Wt 53.5 kg
--- NOTE | ~2019-07-04 | D ---
[facility] [place] [address] DISCHARGE SUMMARY Name: LUPE LEZAMA Room #: 412-P ADM IN M.R.#: [id number] Admission: 07/04/19 Attend Phys: Kenia Dueñas Discharge: Date of : 36 Report #: [id number] THIS REPORT FOR: cc: Hayden Webb MD,Andrew Maher MD, MD ~ THIS REPORT FOR: //name// CC: Hayden Webb FINAL DIAGNOSES: 1. Pneumonia. 2. Chronic obstructive pulmonary disease. HOSPITAL COURSE: The patient was admitted with shortness of breath and cough. With x-ray infiltrate, there was concern of aspiration, but speech therapy saw her and cleared her for a normal swallow. She was treated with antibiotics and ultimately required steroids for bronchospasm and cough. Her other medications were continued. She had no other interval complication. Followup x-ray was showing improvement in the infiltrate. PHYSICAL EXAMINATION: On the day of discharge: GENERAL: She was awake and alert. VITAL SIGNS: Stable. LUNGS: Had some scant crackles in the right base, but otherwise no wheezing. HEART: Regular. ABDOMEN: Soft, normoactive bowel sounds with urostomy in place. EXTREMITIES: Showed no edema. DISPOSITION: She will return to her assisted living facility with home health. Mechanical soft diet and activity as tolerated. PT, OT, ST. Resume all home medications plus Zithromax for 3 days and a prednisone taper. By: 1405 1602 Andrew Baker MD /nt
[~2019-07-04 18:17] MED LIST changes: +AMANTADINE100 M1 PO; +ASPIR 8181 M1 PO; +BACLOFEN5 MG PO; +DELSYM COU30 MG/5 M1 PO; +MAALOX ADVANCE355 M1 PO; +ONDANSETRON ODT4 MG PO; +PREDNISONE 5 MG5 M1 PO; +PRESERVISION A1 EACH PO; +PROBIOTIC1 EAC1 PO
[2019-07-04 18:26] VITALS: BP 158/75
[2019-07-04 18:49] LABS: HEMATOCRIT 26.3 % (37.0-47.0); HEMOGLOBIN 8.2 gm/dL (12.0-15.0); MCH 24.3 pg (26.0-34.0); MCHC 31.1 g/dL (28.0-37.0); MCV 77.9 fL (80.0-100.0); PLATELET COUNT 301 thou/uL (150-400); RBC 3.38 mil/uL (4.20-5.00); RDW 18.8 % (10.5-14.5)
[2019-07-04 18:58] LABS: ANION GAP 6 mmol/L (7-16); BUN 21 mg/dL (7-18); CALCIUM 9.5 mg/dL (8.5-10.1); CHLORIDE 93 mmol/L (98-107); CO2 29 mmol/L (21-32); CREATININE 1.3 mg/dL (0.6-1.0); GLUCOSE 108 mg/dL (74-106); POTASSIUM 4.2 mmol/L (3.5-5.1); SODIUM 128 mmol/L (136-145)
[2019-07-04 19:08] LABS: ABSOLUTE NEUTROPHILS 12.7 thou/uL (1.4-8.2); SGOT 36 U/L (15-37); SGPT 45 U/L (30-65); TOTAL BILIRUBIN 0.2 mg/dL (<0.1-1.0); TOTAL PROTEIN 7.7 g/dL (6.4-8.2); TROPONIN-I <0.06 ng/mL (<0.06)
[2019-07-04 19:09] LABS: ANISOCYTOSIS 1+; HYPOCHROMASIA SLIGHT; MICROCYTES 1+
[2019-07-04 19:35] LABS: BE(vivo) 2.6 mmol/L (-2 to +3); HCO3 26.6 mmol/L (22.0-26.0); PCO2 38.2 mmHg (35.0-45.0); sO2 78.4 % (92.0-98.0)
[2019-07-04 19:52] LABS: PO2 40.2 mmHg (80.0-100.0)
[2019-07-04 20:00] LABS: URINE BILIRUBIN NEGATIVE (Negative); URINE BLOOD 3+ (Negative); URINE CLARITY SL CLOUDY; URINE COLOR YELLOW; URINE GLUCOSE-RANDOM* NEGATIVE (Negative); URINE KETONES NEGATIVE (Negative); URINE PROTEIN (DIPSTICK) 1+ (Negative); URINE UROBILINOGEN 0.2 E.U./dl (0.2-1.0)
[2019-07-04 20:01] LABS: URINE LEUKOCYTES-REFLEX 3+ (Negative); URINE NITRITE-REFLEX POSITIVE (Negative)
[2019-07-04 20:09] LABS: CASTS None Seen /LPF (None Seen); CRYSTALS None Seen /LPF (None Seen); SQUAMOUS 0-3 Few /LPF (0-3); URINE RBC 3-10 Few /HPF (0-2); URINE WBC-REFLEX >25 Many /HPF (0-5)
[2019-07-04] MEDS ORDERED: CARDIZEM CD 18180 M3 PO (22:36)
[2019-07-04] MEDS ORDERED: AMANTADINE 100100 MG PO (22:38)
[2019-07-04] MEDS ORDERED: BACLOFEN20 MG PO ×2 (22:40→22:41)
[2019-07-04] MEDS ORDERED: REGLAN 5 MG TAB5 MG PO ×2 (22:42→22:43)
[2019-07-04] MEDS ORDERED: SURFAK240 MG PO (22:46)
[2019-07-04] MEDS ORDERED: ALENDRONATE SOD35 MG PO (22:46)
[2019-07-04] MEDS ORDERED: ISOSORBIDE MONO30 M1 PO (22:47)
[2019-07-04] MEDS ORDERED: FLONASE 0.05%50 MCG NASAL (22:48)
[2019-07-04 22:54] VITALS: BP 135/66
[2019-07-04 23:27] VITALS: BP 127/70
[2019-07-05 04:29] VITALS: BP 133/53
[2019-07-05 07:43] VITALS: BP 129/54
[2019-07-05 15:13] LABS: % SATURATION 3 % (20-39); IRON 10 ug/dL (50-170); TIBC 318 ug/dL (250-450)
[2019-07-05 15:50] VITALS: BP 151/75
[2019-07-05 19:06] VITALS: BP 116/68
[2019-07-06 08:45] VITALS: BP 115/62
--- NOTE | 2019-07-06 11:40 | H ---
[facility] [place] [address] HISTORY AND PHYSICAL Name: LUPE LEZAMA Room #: 412-P ADM IN M.R.#: [id number] Admission: 07/04/19 Attend Phys: Kenia Dueñas Discharge: Date of : 36 Report #: [id number] THIS REPORT FOR: //name// CC: Hayden Webb DATE OF SERVICE: 07/05/2019 CHIEF COMPLAINT: Shortness of breath and fever. HISTORY OF PRESENT ILLNESS: The patient is an 83-year-old female who was admitted to the Emergency Room with shortness of breath and fever. She has had a productive cough with a thick congestion and nasal drainage for several days. She had vomiting yesterday. The patient and family report that she has been regurgitating food at times almost on a nightly basis for the last several weeks. She does have a history of COPD and bronchiectasis and wears oxygen chronically at 2 liters. PAST MEDICAL HISTORY: Anemia of chronic disease, COPD, hypertension, hypothyroidism, multiple sclerosis. She has a urostomy. She has had frequent hospital admits for pneumonia, bronchitis, history of breast cancer with lumpectomy years ago. PAST SURGICAL HISTORY: She has had an ileal conduit, hysterectomy, kidney stones. FAMILY HISTORY: Noncontributory. SOCIAL HISTORY: She lives at [facility]. No chronic alcohol or tobacco use. ALLERGIES: Multiple, see the list. Include BETHANECHOL, KEFLEX, CEPHRADINE, IV CONTRAST, PENICILLIN, THEOPHYLLINE, BUTORPHANOL, MEPERIDINE, NYSTATIN, ASPIRIN, CLINDAMYCIN, ERYTHROMYCIN, NALIDIXIC ACID, NITROFURANTOIN, TETRACYCLINE, TRIMETHOPRIM, LEVAQUIN. MEDICATIONS: Gabapentin, Flonase, omeprazole, Synthroid, multivitamin, MiraLax, prednisone, Maalox, probiotic, Tylenol, amantadine, aspirin, baclofen. REVIEW OF SYSTEMS: She denies headache, chest pain, shortness of breath, abdominal pain, nausea, vomiting, diarrhea, constipation, dysuria, syncope. OBJECTIVE: VITAL SIGNS: Temperature 37.9, pulse 106, respirations 18, blood pressure 129/54, O2 sat 96% on 2 liters. GENERAL: She is awake and alert, looks chronically ill. HEAD AND NECK: Unremarkable. [address] [address] HISTORY AND PHYSICAL Name: LUPE LEZAMA Room #: [address] [place] [address] IN M.R.#: [id number] Admission: 07/04/19 Attend Phys: Kenia Dueñas Discharge: Date of : 36 Report #: [id number] LUNGS: Expiratory rhonchi throughout. HEART: Regular, no murmur. ABDOMEN: Soft, normoactive bowel sounds. Urostomy right mid abdomen. EXTREMITIES: No cyanosis, clubbing or edema. NEUROLOGIC: She is oriented to place, situation, recognizes me, pleasantly anxious. LABORATORY DATA: White count is 14, hemoglobin 8.2, MCV 77.9, creatinine 1.3. Urinalysis noted. Review of ultrasound of the legs, CT chest, chest x-ray and urine culture. ASSESSMENT: 1. Right lower lobe pneumonia. 2. Chronic obstructive pulmonary disease. 3. Acute on chronic hypoxic respiratory failure. 4. MS. 5. Chronic urostomy. 6. History of atrial fibrillation. 7. Microcytic anemia. PLAN: I will continue her antibiotics for what may be an aspiration pneumonia. She gives a history of regurgitation of food at times and has a right lower lobe consolidating infiltrate. This likely explains a fever. Urinalysis may be just contaminated related to chronic urostomy. The GI team talked to her to see if other studies are warranted given her history of regurgitation. <ELECTRONICALLY SIGNED> By: Andrew Baker MD 07/06/19 1140 1441 1456 Andrew Baker MD /nt
[2019-07-06 20:05] VITALS: BP 131/59
[2019-07-07 06:10] LABS: HEMATOCRIT 29.4 % (37.0-47.0); HEMOGLOBIN 9.3 gm/dL (12.0-15.0); MCHC 31.7 g/dL (28.0-37.0); MCV 78.9 fL (80.0-100.0); RBC 3.72 mil/uL (4.20-5.00); RDW 18.8 % (10.5-14.5); WBC 10.5 thou/uL (4.0-11.0)
[2019-07-07 07:22] VITALS: BP 141/77
[2019-07-07 15:51] VITALS: BP 118/61
[2019-07-07 21:30] VITALS: BP 136/75
[2019-07-08 08:56] VITALS: BP 143/84
[2019-07-08 20:04] VITALS: BP 140/87
[2019-07-09 07:24] VITALS: BP 154/81
[2019-07-09 15:17] VITALS: BP 124/67
[2019-07-09 20:06] VITALS: BP 137/68
[2019-07-10 06:50] LABS: HEMATOCRIT 25.7 % (37.0-47.0); HEMOGLOBIN 8.1 gm/dL (12.0-15.0); MCH 24.4 pg (26.0-34.0); MCHC 31.4 g/dL (28.0-37.0); MCV 77.8 fL (80.0-100.0); RBC 3.31 mil/uL (4.20-5.00); RDW 19.1 % (10.5-14.5); WBC 8.3 thou/uL (4.0-11.0)
[2019-07-10 07:00] LABS: CALCIUM 8.6 mg/dL (8.5-10.1); CREATININE 0.8 mg/dL (0.6-1.0); POTASSIUM 3.8 mmol/L (3.5-5.1)
[2019-07-10 07:56] VITALS: BP 164/81
[2019-07-10 15:33] VITALS: BP 129/77
[2019-07-10 20:08] VITALS: BP 144/74
[2019-07-11 04:19] LABS: HEMATOCRIT 27.1 % (37.0-47.0); HEMOGLOBIN 8.6 gm/dL (12.0-15.0); MCHC 31.8 g/dL (28.0-37.0); MCV 78.6 fL (80.0-100.0); RBC 3.45 mil/uL (4.20-5.00); RDW 18.9 % (10.5-14.5); WBC 8.9 thou/uL (4.0-11.0)
[2019-07-11 07:54] VITALS: BP 161/85
[2019-07-11 15:45] VITALS: BP 130/78
[2019-07-11 20:31] VITALS: BP 148/78
[2019-07-12 10:06] VITALS: BP 118/74
[2019-07-12] MEDS ORDERED: PROTONIX40 M1 PO (12:11)
[2019-07-12 12:55] VITALS: BP 118/74
[2019-07-12] MEDS ORDERED: CLOTRIMAZOLE10 MG PO (13:36)
[2019-07-12] MEDS ORDERED: DIFLUCAN100 MG PO (13:37)
[2019-07-12] MEDS ORDERED: PREDNISONE 5 MG5 M1 PO (13:38)
[2019-07-12] MEDS ORDERED: AZITHROMYCIN500 MG PO (13:45)
--- NOTE | 2019-07-14 15:31 | EKG ---
[facility] [place] [address] ELECTROCARDIOGRAM REPORT Name: LUPE LEZAMA Room #: 412-P [facility] IN M.R.#: [id number] Admission: 07/04/19 Attend Phys: Kenia Dueñas Discharge: 07/12/19 Date of : 36 Report #: [id number] THIS REPORT FOR: cc: Hayden Webb MD, Christopher B. MD Couchonnal, Luis F. 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
== END 2019-07-12 16:24 | disposition home health service (06) | DRG 871 ==
LOC: ER 18:17 → EROBS 21:17 → 3W 21:17 → 4N 07-05 22:38 → ENTRNSPT 07-12 15:46 → 4N 07-12 16:24
PROVIDERS: Internal Medicine Geriatric Medicine; Nurse Practitioner; Physician Assistant; ADMIT Internal Medicine
DX: A41.9 Sepsis, unspecified organism (principal); J96.21 Acute and chronic respiratory failure with hypoxia; J18.9 Pneumonia, unspecified organism; J44.0 Chronic obstructive pulmonary disease with (acute) lower respiratory infection; J44.9 Chronic obstructive pulmonary disease, unspecified; I10 Essential (primary) hypertension; E03.9 Hypothyroidism, unspecified; G35 Multiple sclerosis; K21.9 Gastro-esophageal reflux disease without esophagitis; K44.9 Diaphragmatic hernia without obstruction or gangrene; D53.9 Nutritional anemia, unspecified; D63.8 Anemia in other chronic diseases classified elsewhere; I48.91 Unspecified atrial fibrillation; D50.9 Iron deficiency anemia, unspecified; Z79.01 Long term (current) use of anticoagulants; Z99.81 Dependence on supplemental oxygen; Z98.42 Cataract extraction status, left eye; Z90.49 Acquired absence of other specified parts of digestive tract; Z98.41 Cataract extraction status, right eye; Z90.710 Acquired absence of both cervix and uterus; Z87.442 Personal history of urinary calculi; Z79.899 Other long term (current) drug therapy; Z79.82 Long term (current) use of aspirin; Z88.0 Allergy status to penicillin; Z88.8 Allergy status to other drugs, medicaments and biological substances; Z88.1 Allergy status to other antibiotic agents; Z91.041 Radiographic dye allergy status
CPT/HCPCS: 10091; 10879

== ENCOUNTER 2019-11-19 11:51 | Emergency (ER) | payer OTHER ==
[~2019-11-19] VITALS: Ht 162.6 cm; Wt 49.9 kg
--- NOTE | ~2019-11-19 | EMS ---
[place] [address] EMS Patient Care Report Name: LUPE LEZAMA Room #: PRE MTato#: [id number] Admission: Attend Phys: Discharge: Date of : 36 Report #: [id number] THIS REPORT FOR: //name// Report Transmitted: 11/19/2019 11:34 EMS Care Summary [place], [place]/[facility] Incident [id number] @ 11/19/2019 11:12 Incident Location [address] [place] [address] Patient LUPE LEZAMA Female, 84 Years 1935 Patient Address [address] [place] [address] Patient History Chronic Obstructive Pulmonary Disease (COPD),Parkinson's Disease, Patient Allergies No known allergies, Patient Medications Cardizem, Chief Complaint gen weakness Disposition Transported No Lights/Palm Dispatch Reason Sick Person Transported To [facility] Narrative 84 y/o female c/o increased gen weakness Upon arrival the pt was sitting up in her chair in her living [place]. [place] [address] EMS Patient Care Report Name: LUPE LEZAMA Room #: [facility].#: [id number] Admission: Attend Phys: Discharge: Date of : 36 Report #: [id number] home O2 at 3 lpm NC for COPD. Her R arm is flaccid due to nerve damage from radiation. The pt is conscious A&O x 4 with a GCS of 15. She has a patent airway, breathing is normal, and has a strong reg radial pulse. The pt states she has been having trouble getting up out of her chair and increased gen weakness. The pt states she just doesn't feel very good. Pt denies fever, or Covid related symptoms, No N/V/D. Pt has a dry cough that she says she always has from her COPD. The pt was assisted to the cot, placed on the cot in a position of comfort, secured to the cot, and loaded into the ambulance. VS were established, and ECG showed ST. The pt states she has been eating and drinking foods and fluids daily. She has a suprapubic cath in place. The pt was taken to [place] per her request. There were no incidents or changes with the pt during transport. EMS returned to service. Initial Vitals @11:44P: 101,R: 34,BP: 112/56,SpO2: 95, @11:43P: 105,R: 16,Pain: 0/10,GCS: 15,SpO2: 95, @11:45P: 108,R: 16,BP: 116/79,Pain: 0/10,GCS: 15,SpO2: 95,Revised Trauma: 12, Assessments @12:02MENTAL:Person Oriented,Time Oriented,Place Oriented,Event Oriented,SKIN:HEENT:Head/Face: No Abnormalities,Neck/Airway: No Abnormalities,LUNG SOUNDS:General: No Abnormalities,ABDOMEN:General: No Abnormalities,PELVIS//GI:No Abnormalities,EXTREMITIES:Capillary Refill: Right Upper: < 2 Sec,Capillary Refill: Left Upper: < 2 Sec,Left Arm: No Abnormalities,Right Arm: No Abnormalities,Left Leg: No Abnormalities,Right Leg: No Abnormalities,PULSE:Radial: 2+ Normal,NEURO:No Abnormalities, Impression Generalized Weakness Procedures @11:433-Lead ECGResponse: UnchangedSucceeded@11:25ALS AssessmentResponse: UnchangedSucceeded@PTAOxygen FlowRate: 3 Device: CO2 Nasal Cannula Response: UnchangedSucceeded Timeline LIFT BUILDER WHOLE,Oxygen FlowRate: 3 Device: CO2 Nasal Cannula Response: UnchangedSucceeded, 11:08,Call Received 11:08,Dispatch Notified 11:12,Dispatched 11:13,En Route 11:24,On Scene 11:25,At Patient 11:25,ALS Assessment,Response: UnchangedSucceeded, 11:43,3-Lead ECG,Response: UnchangedSucceeded, 11:43,BP: / M,PULSE: 105,RR: 16 R,SPO2: 95 Ox,ETCO2: ,BG: ,PAIN: 0,GCS: 15, [facility] [address] [place] [address] EMS Patient Care Report Name: TEJALUPE PIERCE Room #: PRE M.R.#: [id number] Admission: Attend Phys: Discharge: Date of : 36 Report #: [id number] 11:44,BP: 112/56 M,PULSE: 101,RR: 34 R,SPO2: 95 Ox,ETCO2: ,BG: ,PAIN: ,GCS: , 11:44,Depart Scene 11:45,BP: 116/79 M,PULSE: 108,RR: 16 R,SPO2: 95 Ox,ETCO2: ,BG: ,PAIN: 0,GCS: 15, 11:48,At Destination 12:10,Call Closed Disclaimer v1.1 Copyright 2020 [employer] This EMS Care Summary contains data elements from the applicable legal record (which may be displayed differently). It is designed to provide pertinent information for the following purposes: continuity of care, clinical quality, and state data reporting. The complete legal record is available to ED staff and administrators of the receiving hospital in [employer] Patient Tracker. All data is provided "as is."
[~2019-11-19 11:51] MED LIST changes: +AZITHROMYCIN500 MG PO; +CARDIZEM CD 18180 M3 PO; +CLOTRIMAZOLE10 MG PO; +DIFLUCAN100 MG PO; +FLONASE 0.05%50 MCG NASAL; +ISOSORBIDE MONO30 M1 PO; +PROTONIX40 M1 PO; +REGLAN 5 MG TAB5 MG PO; +SURFAK240 MG PO
[2019-11-19] MEDS ORDERED: ACETAMINOPHEN500 M1 PO (12:01)
[2019-11-19] MEDS ORDERED: AIRBORNE TABLE1 EACH PO (12:02)
[2019-11-19] MEDS ORDERED: VITAMIN C500 M2 PO (12:02)
[2019-11-19] MEDS ORDERED: ACID CONTROLLER20 MG PO (12:06)
[2019-11-19] MEDS ORDERED: FISH OIL 1,0001 EAC9 PO (12:06)
[2019-11-19] MEDS ORDERED: CULTURELLE KID1 EAC1 PO (12:07)
[2019-11-19] MEDS ORDERED: LEVO-T50 MCG PO (12:08)
[2019-11-19 12:28] LABS: ABSOLUTE NEUTROPHILS 9.7 thou/uL (1.4-8.2); BASOPHILS 0.3 % (0.0-2.0); HEMATOCRIT 24.9 % (37.0-47.0); HEMOGLOBIN 8.1 gm/dL (12.0-15.0); LYMPHOCYTES 2.2 % (24.0-44.0); MCH 29.5 pg (26.0-34.0); MCHC 32.6 g/dL (28.0-37.0); MCV 90.6 fL (80.0-100.0); MONOCYTES 11.1 % (1.0-8.0); PLATELET COUNT 309 thou/uL (150-400); POLYS 86.4 % (36.0-66.0); RBC 2.75 mil/uL (4.20-5.00); RDW 14.6 % (10.5-14.5); WBC 11.3 thou/uL (4.0-11.0)
[2019-11-19 12:38] LABS: CALCIUM 8.7 mg/dL (8.5-10.1); CREATININE 1.5 mg/dL (0.6-1.0); MAGNESIUM 1.9 mg/dL (1.8-2.4); POTASSIUM 4.2 mmol/L (3.5-5.1)
[2019-11-19 13:38] LABS: URINE BILIRUBIN NEGATIVE (Negative); URINE BLOOD 2+ (Negative); URINE CLARITY CLOUDY; URINE COLOR YELLOW; URINE GLUCOSE-RANDOM* NEGATIVE (Negative); URINE KETONES NEGATIVE (Negative); URINE NITRITE-REFLEX NEGATIVE (Negative); URINE PROTEIN (DIPSTICK) 1+ (Negative); URINE SPECIFIC GRAVITY 1.015 (1.005-1.035); URINE UROBILINOGEN 0.2 E.U./dl (0.2-1.0)
[2019-11-19 13:39] LABS: URINE LEUKOCYTES-REFLEX 3+ (Negative)
[2019-11-19 14:17] LABS: BACTERIA-REFLEX >30 Many /HPF (None Seen); SQUAMOUS 0-3 Few /LPF (0-3); URINE WBC-REFLEX >25 Many /HPF (0-5)
[2019-11-19 14:18] LABS: CRYSTALS None Seen /LPF (None Seen)
[2019-11-19 22:33] VITALS: BP 160/85
--- NOTE | 2019-11-20 07:58 | EKG ---
[facility] [place] [address] ELECTROCARDIOGRAM REPORT Name: LUPE LEZAMA Room #: DEP [facility]#: [id number] Admission: 11/19/19 Attend Phys: Discharge: 11/19/19 Date of : 36 Report #: [id number] THIS REPORT FOR: cc: Hayden Webb MD, Christopher B. MD Lundgren, Craig H. 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1935 Requested By: Hussein Olivier Order Number: [id number] MD: Alod River Measurements Intervals [place] Rate: 102 P: 62 ME: 152 QRS: 13 QRSD: 92 T: 29 QT: 336 QTc: 438 Interpretive Statements Sinus tachycardia with atrial premature complexes Otherwise normal tracing Compared to ECG 07/04/2019 18:54:05 No significant changes Electronically Signed On 11-20-2019 7:58:47 CDT by Aldo River [email or web address] <ELECTRONICALLY SIGNED> By: Aldo River MD, FACC 11/20/19 0758 1206 1206 Aldo River MD, [facility] /EPI
== END 2019-11-19 22:40 | disposition short-term general hospital (02) ==
LOC: ER 11:51
PROVIDERS: Emergency Medicine
DX: N17.9 Acute kidney failure, unspecified (principal); D53.9 Nutritional anemia, unspecified; N13.30 Unspecified hydronephrosis; E87.1 Hypo-osmolality and hyponatremia; N39.0 Urinary tract infection, site not specified; K46.9 Unspecified abdominal hernia without obstruction or gangrene; N13.9 Obstructive and reflux uropathy, unspecified; R53.1 Weakness; J44.9 Chronic obstructive pulmonary disease, unspecified; E03.9 Hypothyroidism, unspecified; K21.9 Gastro-esophageal reflux disease without esophagitis; Z20.828 Contact with and (suspected) exposure to other viral communicable diseases; Z90.710 Acquired absence of both cervix and uterus; Z79.2 Long term (current) use of antibiotics; Z79.899 Other long term (current) drug therapy; Z88.1 Allergy status to other antibiotic agents; Z88.8 Allergy status to other drugs, medicaments and biological substances; Z88.0 Allergy status to penicillin; Z88.6 Allergy status to analgesic agent; Z91.041 Radiographic dye allergy status